=== PATIENT | male | born 1955 | race Caucasian/White ===

== ENCOUNTER 2017-12-03 09:45 | Inpatient (IN) | payer MEDICARE, BC, OTHER ==
[~2017-12-03] VITALS: Ht 182.9 cm; Wt 83.0 kg
[~2017-12-03 09:45] MED LIST: AMIO200T57 PO; CARV-50 PO; CLON-529 PO; FURO80TA87 PO; LOSA100T28 PO; METF500T PO; MINO10TA16 PO; POTA8TAB8 PO; RIVA20TA PO
[2017-12-03] MEDS ORDERED: nitroGLYCERIN 0.4mg SUBLingual tab SL PRN (10:05)
[2017-12-03 10:06] LABS: BASOPHILS % (AUTO) 0.1 % (0-1); EOSINOPHILS # (AUTO) 0.5 X10'3 (0-0.9); EOSINOPHILS % (AUTO) 2.9 % (0-6); HEMATOCRIT 49.5 % (42.0-52.0); HEMOGLOBIN 16.6 g/dl (14.0-17.9); LYMPHOCYTES # (AUTO) 1.2 X10'3 (1.1-4.8); MEAN CORPUSCULAR HEMOGLOBIN 28.6 PG (27.0-31.0); MEAN CORPUSCULAR HGB CONC 33.5 % (33.0-36.5); MEAN CORPUSCULAR VOLUME 85.4 FL (78-98); MEAN PLATELET VOLUME 8.1 FL (7.4-10.4); MONOCYTES % (AUTO) 5.3 % (2-12); NEUTROPHILS # (AUTO) 15.2 X10'3 (1.8-7.7); NEUTROPHILS % (AUTO) 84.7 % (42-75); PLATELET COUNT 231 X10'3 (140-440); RED CELL DISTRIBUTION WIDTH 16.7 % (11.5-14.5); WHITE BLOOD COUNT 17.9 X10'3 (4.5-11.0)
[2017-12-03 10:21] LABS: ALANINE AMINOTRANSFERASE 23 U/L (12-78); ALBUMIN 4.4 G/DL (3.4-5.0); ALBUMIN/GLOBULIN RATIO 0.9 (1.1-1.5); ALKALINE PHOSPHATASE 82 IU/L (46-116); ANION GAP 14 (8-16); ASPARTATE AMINO TRANSFERASE 14 U/L (10-37); BILIRUBIN,TOTAL 0.6 MG/DL (0.1-1.0); BLOOD UREA NITROGEN 26 MG/DL (7-18); CALCIUM 10.1 MG/DL (8.5-10.1); CHLORIDE 100 MMOL/L (99-107); CREATININE 1.63 MG/DL (0.60-1.10); GLUCOSE 356 MG/DL (70-104); POTASSIUM 4.2 MMOL/L (3.5-5.1); SODIUM 139 MMOL/L (135-145); TOTAL CARBON DIOXIDE 24.9 MMOL/L (24-32); TOTAL PROTEIN 9.1 G/DL (6.4-8.2); eGFR 43 ML/MIN
[2017-12-03 10:31] LABS: INR 1.1 INR; PARTIAL THROMBOPLASTIN TIME 27 SECONDS (22-32); PROTHROMBIN TIME 11.6 SECONDS (9.0-12.0)
[2017-12-03 10:43] LABS: LIPASE 148 U/L (73-393)
[2017-12-03] MEDS ORDERED: aspirin 81mg tab.chew PO ONE (11:10)
[2017-12-03] MEDS ORDERED: ondansetron/PF 4mg/2ml inj IV PRN (11:40)
[2017-12-03] MEDS ORDERED: mag hydrox/Alum hydrox/simeth 30ml oral suspension PO PRN (11:40)
[2017-12-03] MEDS ORDERED: magnesium 4gm in 100ml NS 100 ML IV PRN (11:40)
[2017-12-03] MEDS ORDERED: potassium Cl 20 mEq SR tablet PO PRN ×2 (11:40)
[2017-12-03] MEDS ORDERED: diphenhydrAMINE 25mg capsule PO PRN (11:40)
[2017-12-03] MEDS ORDERED: magnesium hydroxide 30ml (MOM) UD suspension PO PRN (11:40)
[2017-12-03] MEDS ORDERED: magnesium 2GM in 50ml NS 50 ML IV PRN (11:40)
[2017-12-03] MEDS ORDERED: HYDROcodone/acetaminophen 5mg/325mg tablet PO PRN (11:40)
[2017-12-03] MEDS ORDERED: potassium Cl 40MEQ/NS 500ml 500 ML IV PRN ×2 (11:40)
[2017-12-03] MEDS ORDERED: morphine 4 MG/ML inj SYRINge IV PRN (11:40)
[2017-12-03] MEDS ORDERED: acetaminophen 325mg tablet PO PRN (11:40)
[2017-12-03] MEDS ORDERED: magnesium Cl slow-release 64mg tablet PO PRN (11:40)
[2017-12-03] MEDS ORDERED: dextrose ORAL solution 15 GM/59 ML bottle PO PRN ×2 (12:15)
[2017-12-03] MEDS ORDERED: glucagon, human recombinant 1mg kit SUBCUT PRN (12:15)
[2017-12-03] MEDS ORDERED: dextrose 50%-water 50ml dispensing syringe IV PRN ×2 (12:15)
[2017-12-03] MEDS ORDERED: MESSAGE TO PHARMACY PO ONE (12:15)
[2017-12-03 13:00] LABS: HEMOGLOBIN A1C 8.2 % (4.5-6.2)
[2017-12-03 13:48] VITALS: BP 144/117
[2017-12-03] MEDS ORDERED: heparin 10,000 units/1 ML INJ IV ONE (14:15)
[2017-12-03] MEDS ORDERED: nitroGLYCERIN 1gm ointment UD TP ONE (14:25)
[2017-12-03 15:00] VITALS: BP 103/75
[2017-12-03 15:34] LABS: BASOPHILS % (AUTO) 0.1 % (0-1); EOSINOPHILS # (AUTO) 0.3 X10'3 (0-0.9); EOSINOPHILS % (AUTO) 1.8 % (0-6); HEMATOCRIT 46.2 % (42.0-52.0); HEMOGLOBIN 15.7 g/dl (14.0-17.9); LYMPHOCYTES # (AUTO) 1.1 X10'3 (1.1-4.8); MEAN CORPUSCULAR HEMOGLOBIN 28.3 PG (27.0-31.0); MEAN CORPUSCULAR HGB CONC 33.9 % (33.0-36.5); MEAN CORPUSCULAR VOLUME 83.4 FL (78-98); MEAN PLATELET VOLUME 8.3 FL (7.4-10.4); MONOCYTES # (AUTO) 0.9 X10'3 (0-0.9); MONOCYTES % (AUTO) 4.7 % (2-12); NEUTROPHILS # (AUTO) 16.6 X10'3 (1.8-7.7); NEUTROPHILS % (AUTO) 87.4 % (42-75); PLATELET COUNT 212 X10'3 (140-440); RED BLOOD COUNT 5.53 X10'6 (4.70-6.10); RED CELL DISTRIBUTION WIDTH 16.9 % (11.5-14.5)
[2017-12-03 15:47] LABS: INR 1.1 INR; PARTIAL THROMBOPLASTIN TIME 27 SECONDS (22-32); PROTHROMBIN TIME 11.5 SECONDS (9.0-12.0)
[2017-12-03 19:00] VITALS: BP 148/104
[2017-12-03] MEDS: tirofiban 5mg in NS 100mL 100 ML IV SCH ×2 (19:01→23:12)
[2017-12-03] MEDS: carVEDilol 12.5mg tablet PO SCH (19:29)
[2017-12-03] MEDS: docusate sod 100mg capsule PO SCH (19:30)
[2017-12-03] MEDS: furosemide 10 MG/1 ML 10ml inj IV SCH (19:31)
[2017-12-03] MEDS ORDERED: heparin, porcine 5000 units/ml vial SQ SCH (20:00)
[2017-12-03] MEDS ORDERED: metFORMIN 500mg tablet PO SCH (20:00)
[2017-12-03] MEDS: insulin glargine (Lantus) pen - multi-dose SQ SCH (21:00)
[2017-12-03] MEDS ORDERED: temazepam 15mg capsule PO PRN (21:00)
[2017-12-03] MEDS: heparin 10,000 units/1 ML INJ IV PRN (22:01)
[2017-12-03 23:00] VITALS: BP 161/84
[2017-12-04] VITALS (10 sets, daily range): BP systolic 109–161; BP diastolic 61–99
[2017-12-04] MEDS: heparin 10,000 units/1 ML INJ IV PRN (06:05)
[2017-12-04] MEDS ORDERED: heparin 1,000unit/ml 10ml vial 10 ML ONE (06:14)
[2017-12-04] MEDS ORDERED: LIDOcaine 1%/PF (10mg/ml) 5ml vial ONE ×2 (06:14)
[2017-12-04] MEDS ORDERED: iohexol 350 MG/1 ML 200ml bottle ONE (06:14)
[2017-12-04] MEDS ORDERED: verapamil 2.5 mg/ml inj IV ONE (06:16)
[2017-12-04] MEDS ORDERED: nitroGLYCERIN-Tridil 50MG/D5W 250 ML IV ONE (06:16)
[2017-12-04] MEDS ORDERED: fentaNYL/PF 50MCG/1 ML 2ML syringe ONE (06:30)
[2017-12-04] MEDS ORDERED: midazolam 2 mg/2 ml injection ONE (06:30)
[2017-12-04 06:55] LABS: ALANINE AMINOTRANSFERASE 36 U/L (12-78); ALBUMIN 3.7 G/DL (3.4-5.0); ALBUMIN/GLOBULIN RATIO 0.9 (1.1-1.5); ALKALINE PHOSPHATASE 69 IU/L (46-116); ANION GAP 11 (8-16); ASPARTATE AMINO TRANSFERASE 92 U/L (10-37); BILIRUBIN,TOTAL 0.5 MG/DL (0.1-1.0); BLOOD UREA NITROGEN 33 MG/DL (7-18); BUN/CREATININE RATIO 22.3 (5.4-32.0); CALCIUM 9.9 MG/DL (8.5-10.1); CHLORIDE 102 MMOL/L (99-107); CREATININE 1.48 MG/DL (0.60-1.10); GLUCOSE 243 MG/DL (70-104); MAGNESIUM 2.1 MG/DL (1.5-2.4); PHOSPHORUS 4.7 MG/DL (2.3-4.5); POTASSIUM 4.2 MMOL/L (3.5-5.1); SODIUM 138 MMOL/L (135-145); TOTAL CARBON DIOXIDE 25.1 MMOL/L (24-32); TOTAL PROTEIN 7.9 G/DL (6.4-8.2); eGFR 48 ML/MIN
[2017-12-04 07:01] LABS: BASOPHILS # (AUTO) 0.1 X10'3 (0-0.2); BASOPHILS % (AUTO) 0.6 % (0-1); EOSINOPHILS # (AUTO) 0.5 X10'3 (0-0.9); HEMATOCRIT 49.2 % (42.0-52.0); HEMOGLOBIN 16.3 g/dl (14.0-17.9); LYMPHOCYTES # (AUTO) 2.1 X10'3 (1.1-4.8); LYMPHOCYTES % (AUTO) 12.1 % (21-51); MEAN CORPUSCULAR HEMOGLOBIN 28.2 PG (27.0-31.0); MEAN CORPUSCULAR HGB CONC 33.1 % (33.0-36.5); MEAN CORPUSCULAR VOLUME 85.1 FL (78-98); MEAN PLATELET VOLUME 8.5 FL (7.4-10.4); MONOCYTES # (AUTO) 1.6 X10'3 (0-0.9); MONOCYTES % (AUTO) 9.6 % (2-12); NEUTROPHILS # (AUTO) 12.8 X10'3 (1.8-7.7); NEUTROPHILS % (AUTO) 74.7 % (42-75); PLATELET COUNT 203 X10'3 (140-440); RED BLOOD COUNT 5.78 X10'6 (4.70-6.10); RED CELL DISTRIBUTION WIDTH 17.2 % (11.5-14.5); WHITE BLOOD COUNT 17.1 X10'3 (4.5-11.0)
[2017-12-04] MEDS ORDERED: clopidogrel 300mg tablet ONE (07:03)
[2017-12-04 07:35] LABS: CHOL/HDL RATIO 2.8 (0.00-4.99); CHOLESTEROL 109 MG/DL (0-200); HDL CHOLESTEROL 39 MG/DL (35-60); LDL CHOLESTEROL 56 MG/DL (50-100); TRIGLYCERIDES 88 MG/DL (20-135)
[2017-12-04] MEDS: K and/or MAG REPLACEMENT MC SCH (08:00)
[2017-12-04] MEDS ORDERED: rivaroxaban 20mg tablet PO SCH (08:00)
[2017-12-04] MEDS ORDERED: proCHLORperazine 10 MG/2 ml inj IV PRN (08:20)
[2017-12-04] MEDS ORDERED: nitroGLYCERIN 0.4mg SUBLingual tab SL PRN (08:20)
[2017-12-04] MEDS ORDERED: HYDROcodone/acetaminophen 10/325mg tab PO PRN (08:20)
[2017-12-04] MEDS ORDERED: OXAZEpam 15mg capsule PO PRN (08:20)
[2017-12-04] MEDS ORDERED: normal saline 1000ml 1,000 ML IV SCH (08:20)
[2017-12-04] MEDS: aspirin 81mg tab.chew PO SCH (08:33)
[2017-12-04] MEDS: atorvastatin 20mg tablet PO SCH (08:33)
[2017-12-04] MEDS: cloNIDine 0.1 mg tablet PO SCH (08:34)
[2017-12-04] MEDS: docusate sod 100mg capsule PO SCH ×2 (08:34→20:59)
[2017-12-04] MEDS: furosemide 10 MG/1 ML 10ml inj IV SCH ×2 (08:35→20:59)
[2017-12-04] MEDS: carVEDilol 12.5mg tablet PO SCH ×2 (08:45→20:59)
[2017-12-04] MEDS: amiodarone 200mg tablet PO SCH (08:46)
[2017-12-04] MEDS ORDERED: NITR0.4T51 SL (11:47)
[2017-12-04] MEDS ORDERED: ASPI-1265 PO (11:47)
[2017-12-04] MEDS ORDERED: ATOR20TA66 PO (11:47)
[2017-12-04] MEDS ORDERED: CLOP75TA35 PO (11:47)
[2017-12-04] MEDS: insulin Lispro (HumaLOG) vial - multi-dose SQ SCH ×2 (13:01→18:45)
[2017-12-04] MEDS: insulin glargine (Lantus) pen - multi-dose SQ SCH (20:50)
[2017-12-05 02:00] VITALS: BP 109/75
[2017-12-05 05:37] LABS: BASOPHILS # (AUTO) 0.1 X10'3 (0-0.2); BASOPHILS % (AUTO) 0.5 % (0-1); EOSINOPHILS # (AUTO) 0.6 X10'3 (0-0.9); EOSINOPHILS % (AUTO) 3.6 % (0-6); HEMATOCRIT 50.4 % (42.0-52.0); HEMOGLOBIN 16.9 g/dl (14.0-17.9); LYMPHOCYTES % (AUTO) 6.3 % (21-51); MEAN CORPUSCULAR HEMOGLOBIN 28.4 PG (27.0-31.0); MEAN CORPUSCULAR HGB CONC 33.5 % (33.0-36.5); MEAN CORPUSCULAR VOLUME 84.8 FL (78-98); MEAN PLATELET VOLUME 8.7 FL (7.4-10.4); MONOCYTES # (AUTO) 1.7 X10'3 (0-0.9); MONOCYTES % (AUTO) 10.7 % (2-12); NEUTROPHILS # (AUTO) 12.6 X10'3 (1.8-7.7); NEUTROPHILS % (AUTO) 78.9 % (42-75); PLATELET COUNT 195 X10'3 (140-440); RED BLOOD COUNT 5.94 X10'6 (4.70-6.10); RED CELL DISTRIBUTION WIDTH 15.9 % (11.5-14.5); WHITE BLOOD COUNT 15.9 X10'3 (4.5-11.0)
[2017-12-05 05:47] LABS: ALANINE AMINOTRANSFERASE 29 U/L (12-78); ALBUMIN 3.8 G/DL (3.4-5.0); ALBUMIN/GLOBULIN RATIO 0.8 (1.1-1.5); ALKALINE PHOSPHATASE 77 IU/L (46-116); ANION GAP 10 (8-16); ASPARTATE AMINO TRANSFERASE 40 U/L (10-37); BILIRUBIN,TOTAL 0.8 MG/DL (0.1-1.0); BLOOD UREA NITROGEN 45 MG/DL (7-18); BUN/CREATININE RATIO 27.1 (5.4-32.0); CALCIUM 9.8 MG/DL (8.5-10.1); CHLORIDE 99 MMOL/L (99-107); CREATININE 1.66 MG/DL (0.60-1.10); GLUCOSE 266 MG/DL (70-104); MAGNESIUM 1.9 MG/DL (1.5-2.4); PHOSPHORUS 5.1 MG/DL (2.3-4.5); POTASSIUM 4.4 MMOL/L (3.5-5.1); SODIUM 137 MMOL/L (135-145); TOTAL CARBON DIOXIDE 27.8 MMOL/L (24-32); TOTAL PROTEIN 8.3 G/DL (6.4-8.2); eGFR 42 ML/MIN
[2017-12-05] MEDS ORDERED: normal saline 1000ml 1,000 ML IV ONE (06:55)
[2017-12-05] MEDS ORDERED: normal saline 1000ml 1,000 ML IV SCH (07:00)
[2017-12-05 07:16] VITALS: BP 149/94
[2017-12-05] MEDS: amiodarone 200mg tablet PO SCH (07:41)
[2017-12-05] MEDS: cloNIDine 0.1 mg tablet PO SCH (07:41)
[2017-12-05] MEDS: carVEDilol 12.5mg tablet PO SCH (07:42)
[2017-12-05] MEDS: atorvastatin 20mg tablet PO SCH (07:42)
[2017-12-05] MEDS: aspirin 81mg tab.chew PO SCH (07:42)
[2017-12-05] MEDS: docusate sod 100mg capsule PO SCH (07:42)
[2017-12-05] MEDS: insulin Lispro (HumaLOG) vial - multi-dose SQ SCH (07:48)
[2017-12-05] MEDS ORDERED: furosemide 20MG tablet PO SCH (08:00)
[2017-12-05] MEDS ORDERED: clopidogrel 75mg tablet PO SCH (08:00)
[2017-12-05] MEDS: K and/or MAG REPLACEMENT MC SCH (08:26)
== END 2017-12-05 10:40 | disposition home or self-care (01) | DRG 248 ==
LOC: ER 09:46 → PCU 3S 11:39 → EDBEDREQTM 12:48 → CMPBEDREQ 20:00
PROVIDERS: ADMIT Internal Medicine; ATTEND Internal Medicine
PROC: 4A023N7 Measurement of Cardiac Sampling and Pressure, Left Heart, Percutaneous Approach (ICD-10-PCS; principal; 2017-12-04)
PROC: 02703DZ Dilation of Coronary Artery, One Artery with Intraluminal Device, Percutaneous Approach (ICD-10-PCS; 2017-12-04)
PROC: B2111ZZ Fluoroscopy of Multiple Coronary Arteries using Low Osmolar Contrast (ICD-10-PCS; 2017-12-04)
PROC: B2151ZZ Fluoroscopy of Left Heart using Low Osmolar Contrast (ICD-10-PCS; 2017-12-04)
DX: I21.4 Non-ST elevation (NSTEMI) myocardial infarction (principal); I50.33 Acute on chronic diastolic (congestive) heart failure; I48.92 Unspecified atrial flutter; I11.0 Hypertensive heart disease with heart failure; I45.10 Unspecified right bundle-branch block; I48.0 Paroxysmal atrial fibrillation; E78.5 Hyperlipidemia, unspecified; E11.9 Type 2 diabetes mellitus without complications; I25.10 Atherosclerotic heart disease of native coronary artery without angina pectoris; N28.9 Disorder of kidney and ureter, unspecified; M10.9 Gout, unspecified; J44.9 Chronic obstructive pulmonary disease, unspecified; Z72.0 Tobacco use; Z95.5 Presence of coronary angioplasty implant and graft; I25.2 Old myocardial infarction; Z79.82 Long term (current) use of aspirin; Z79.899 Other long term (current) drug therapy; Z79.01 Long term (current) use of anticoagulants; Z88.1 Allergy status to other antibiotic agents; Z85.038 Personal history of other malignant neoplasm of large intestine; Z82.41 Family history of sudden cardiac death; Z82.49 Family history of ischemic heart disease and other diseases of the circulatory system; Z83.3 Family history of diabetes mellitus; Z83.42 Family history of familial hypercholesterolemia
CPT/HCPCS: 93306; 93458; 99285; C9600; 36415; 71045; 80053; 80061; 82948; 83036; 83690; 83735; 83880; 84100; 84484; 85025; 85610; 85730; 87070; 93005; 99152; 99153; A4620; A6257; C1725; C1769; C1876; J1644; J1815; J1940; J2001; J2250; J3010; J3246; J3490; J7030; Q9967

== ENCOUNTER 2018-08-11 12:44 | Inpatient (IN) | payer MEDICARE, BC, OTHER ==
[~2018-08-11] VITALS: Ht 180.3 cm; Wt 93.8 kg
[~2018-08-11 12:44] MED LIST changes: +AMIO200T40 PO; -AMIO200T57 PO; +ASPI-1265 PO; +ATOR20TA66 PO; +CLOP75TA35 PO; +LOSA100T15 PO; -LOSA100T28 PO; +NITR0.4T51 SL
[2018-08-11 13:12] LABS: BASOPHILS # (AUTO) 0.1 X10'3 (0-0.2); BASOPHILS % (AUTO) 0.6 % (0-1); EOSINOPHILS # (AUTO) 0.6 X10'3 (0-0.9); HEMATOCRIT 37.2 % (42.0-52.0); HEMOGLOBIN 12.4 g/dl (14.0-17.9); LYMPHOCYTES # (AUTO) 1.2 X10'3 (1.1-4.8); LYMPHOCYTES % (AUTO) 10.9 % (21-51); MEAN CORPUSCULAR HEMOGLOBIN 29.9 PG (27.0-31.0); MEAN CORPUSCULAR HGB CONC 33.2 % (33.0-36.5); MEAN CORPUSCULAR VOLUME 90.1 FL (78-98); MEAN PLATELET VOLUME 7.4 FL (7.4-10.4); NEUTROPHILS # (AUTO) 8.5 X10'3 (1.8-7.7); NEUTROPHILS % (AUTO) 74.5 % (42-75); PLATELET COUNT 221 X10'3 (140-440); RED BLOOD COUNT 4.13 X10'6 (4.70-6.10); RED CELL DISTRIBUTION WIDTH 13.5 % (11.5-14.5); WHITE BLOOD COUNT 11.4 X10'3 (4.5-11.0)
[2018-08-11 13:28] LABS: ALANINE AMINOTRANSFERASE 13 U/L (12-78); ALBUMIN/GLOBULIN RATIO 1.1 (1.1-1.5); ALKALINE PHOSPHATASE 69 IU/L (46-116); ANION GAP 13 (8-16); ASPARTATE AMINO TRANSFERASE 9 U/L (10-37); BILIRUBIN,TOTAL 0.6 MG/DL (0.1-1.0); BLOOD UREA NITROGEN 38 MG/DL (7-18); BUN/CREATININE RATIO 18.5 (5.4-32.0); CALCIUM 9.1 MG/DL (8.5-10.1); CHLORIDE 99 MMOL/L (99-107); CREATININE 2.05 MG/DL (0.60-1.10); GLUCOSE 195 MG/DL (70-104); POTASSIUM 4.4 MMOL/L (3.5-5.1); SODIUM 136 MMOL/L (135-145); TOTAL CARBON DIOXIDE 24.4 MMOL/L (24-32); TOTAL PROTEIN 7.8 G/DL (6.4-8.2); eGFR 33 ML/MIN
[2018-08-11 13:31] LABS: INR 1.1 INR; PARTIAL THROMBOPLASTIN TIME 28 SECONDS (22-32); PROTHROMBIN TIME 11.3 SECONDS (9.0-12.0)
[2018-08-11] MEDS ORDERED: dextrose ORAL solution 15 GM/59 ML bottle PO PRN ×2 (14:35)
[2018-08-11] MEDS ORDERED: morphine 2 MG/ML inj. syringe IV PRN ×2 (14:35)
[2018-08-11] MEDS ORDERED: ipratropium/albuterol 3ml nebule NEB PRN (14:35)
[2018-08-11] MEDS ORDERED: MESSAGE TO PHARMACY PO ONE (14:35)
[2018-08-11] MEDS ORDERED: acetaminophen 325mg tablet PO PRN (14:35)
[2018-08-11] MEDS ORDERED: docusate sod 100mg capsule PO PRN (14:35)
[2018-08-11] MEDS ORDERED: dextrose 50%-water 50ml dispensing syringe IV PRN ×2 (14:35)
[2018-08-11] MEDS ORDERED: magnesium 4gm in 100ml NS 100 ML IV PRN (14:35)
[2018-08-11] MEDS ORDERED: ondansetron/PF 4mg/2ml inj IV PRN (14:35)
[2018-08-11] MEDS ORDERED: mag hydrox/Alum hydrox/simeth 30ml oral suspension PO PRN (14:35)
[2018-08-11] MEDS ORDERED: potassium Cl 20 mEq SR tablet PO PRN ×2 (14:35)
[2018-08-11] MEDS ORDERED: potassium Cl 40MEQ/NS 500ml 500 ML IV PRN ×2 (14:35)
[2018-08-11] MEDS ORDERED: glucagon, human recombinant 1mg kit SUBCUT PRN (14:35)
[2018-08-11] MEDS ORDERED: insulin Lispro (HumaLOG) vial - multi-dose SQ SCH (14:35)
[2018-08-11] MEDS: clopidogrel 75mg tablet PO SCH (15:25)
[2018-08-11] MEDS ORDERED: SPIR50TA5 PO (16:04)
[2018-08-11] MEDS ORDERED: GLYB5TAB7 PO (16:04)
[2018-08-11] MEDS ORDERED: DILT120C51 PO (16:04)
[2018-08-11] MEDS ORDERED: ACET-2119 PO (16:04)
[2018-08-11] MEDS ORDERED: FURO80TA3 PO (16:04)
[2018-08-11] MEDS ORDERED: insulin glargine (Lantus) pen - multi-dose SQ SCH (21:00)
[2018-08-11 22:00] VITALS: BP 125/65
[2018-08-12 01:41] LABS: ALANINE AMINOTRANSFERASE 10 U/L (12-78); ALBUMIN 3.3 G/DL (3.4-5.0); ALKALINE PHOSPHATASE 57 IU/L (46-116); ANION GAP 10 (8-16); ASPARTATE AMINO TRANSFERASE 8 U/L (10-37); BILIRUBIN,TOTAL 0.4 MG/DL (0.1-1.0); BLOOD UREA NITROGEN 48 MG/DL (7-18); CALCIUM 8.9 MG/DL (8.5-10.1); CHLORIDE 103 MMOL/L (99-107); CREATININE 2.18 MG/DL (0.60-1.10); GLUCOSE 114 MG/DL (70-104); POTASSIUM 4.3 MMOL/L (3.5-5.1); SODIUM 138 MMOL/L (135-145); TOTAL CARBON DIOXIDE 24.6 MMOL/L (24-32); TOTAL PROTEIN 6.6 G/DL (6.4-8.2); eGFR 31 ML/MIN
[2018-08-12 01:45] LABS: CHOL/HDL RATIO 2.3 (0.00-4.99); CHOLESTEROL 80 MG/DL (0-200); HDL CHOLESTEROL 35 MG/DL (35-60); LDL CHOLESTEROL 37 MG/DL (50-100); MAGNESIUM 2.1 MG/DL (1.5-2.4); TRIGLYCERIDES 52 MG/DL (20-135)
[2018-08-12 01:51] LABS: BASOPHILS # (AUTO) 0.1 X10'3 (0-0.2); BASOPHILS % (AUTO) 0.6 % (0-1); EOSINOPHILS # (AUTO) 0.6 X10'3 (0-0.9); EOSINOPHILS % (AUTO) 6.6 % (0-6); HEMATOCRIT 32.3 % (42.0-52.0); LYMPHOCYTES # (AUTO) 1.5 X10'3 (1.1-4.8); LYMPHOCYTES % (AUTO) 17.2 % (21-51); MEAN CORPUSCULAR HEMOGLOBIN 30.5 PG (27.0-31.0); MEAN CORPUSCULAR HGB CONC 34.1 % (33.0-36.5); MEAN CORPUSCULAR VOLUME 89.5 FL (78-98); MEAN PLATELET VOLUME 7.9 FL (7.4-10.4); MONOCYTES % (AUTO) 11.2 % (2-12); NEUTROPHILS # (AUTO) 5.5 X10'3 (1.8-7.7); NEUTROPHILS % (AUTO) 64.4 % (42-75); PLATELET COUNT 185 X10'3 (140-440); RED BLOOD COUNT 3.61 X10'6 (4.70-6.10); RED CELL DISTRIBUTION WIDTH 13.9 % (11.5-14.5); WHITE BLOOD COUNT 8.5 X10'3 (4.5-11.0)
[2018-08-12 02:00] VITALS: BP 122/64
[2018-08-12 07:01] VITALS: BP 131/80
[2018-08-12] MEDS ORDERED: rivaroxaban 20mg tablet PO SCH (08:00)
[2018-08-12] MEDS ORDERED: K and/or MAG REPLACEMENT MC SCH (08:00)
[2018-08-12] MEDS: clopidogrel 75mg tablet PO SCH (08:11)
[2018-08-12 11:00] VITALS: BP 130/68
== END 2018-08-12 12:55 | disposition home or self-care (01) | DRG 683 ==
LOC: ER 12:44 → ED HOLD 14:34 → PCU 3S 19:38
PROVIDERS: ADMIT Family Medicine; ATTEND Family Medicine
DX: N17.9 Acute kidney failure, unspecified (principal); I13.0 Hypertensive heart and chronic kidney disease with heart failure and stage 1 through stage 4 chronic kidney disease, or unspecified chronic kidney disease; I50.30 Unspecified diastolic (congestive) heart failure; I25.10 Atherosclerotic heart disease of native coronary artery without angina pectoris; M10.9 Gout, unspecified; E11.22 Type 2 diabetes mellitus with diabetic chronic kidney disease; J44.9 Chronic obstructive pulmonary disease, unspecified; N18.9 Chronic kidney disease, unspecified; R07.9 Chest pain, unspecified; I48.2 Chronic atrial fibrillation; I25.2 Old myocardial infarction; Z95.5 Presence of coronary angioplasty implant and graft; Z88.1 Allergy status to other antibiotic agents; Z79.899 Other long term (current) drug therapy; Z79.4 Long term (current) use of insulin; Z79.82 Long term (current) use of aspirin; Z79.01 Long term (current) use of anticoagulants; Z86.73 Personal history of transient ischemic attack (TIA), and cerebral infarction without residual deficits; Z87.891 Personal history of nicotine dependence; Z87.01 Personal history of pneumonia (recurrent); Z82.41 Family history of sudden cardiac death; Z82.49 Family history of ischemic heart disease and other diseases of the circulatory system
CPT/HCPCS: 36415; 71045; 80053; 80061; 82948; 83036; 83735; 84484; 85025; 85610; 85730; 87070; 93005; 93306; 94640; 94760; 99285; G0378; J1815

== ENCOUNTER 2018-10-17 20:22 | Emergency (ER) | payer MEDICARE, BC, OTHER ==
[~2018-10-17] VITALS: Ht 180.3 cm; Wt 90.0 kg
[~2018-10-17 20:22] MED LIST changes: +ACET-2119 PO; -AMIO200T40 PO; -CARV-50 PO; -CLON-529 PO; +DILT120C51 PO; -FURO80TA87 PO; +GLYB5TAB7 PO; -LOSA100T15 PO; +LOSA100T57 PO; -METF500T PO; -POTA8TAB8 PO; -RIVA20TA PO; +SPIR50TA5 PO
[2018-10-18 00:52] LABS: ALANINE AMINOTRANSFERASE 14 U/L (12-78); ALBUMIN/GLOBULIN RATIO 1.1 (1.1-1.5); ALKALINE PHOSPHATASE 73 IU/L (46-116); ANION GAP 14 (8-16); ASPARTATE AMINO TRANSFERASE 13 U/L (10-37); BASOPHILS # (AUTO) 0.1 X10'3 (0-0.2); BASOPHILS % (AUTO) 0.6 % (0-1); BILIRUBIN,TOTAL 0.8 MG/DL (0.1-1.0); BLOOD UREA NITROGEN 50 MG/DL (7-18); CALCIUM 9.1 MG/DL (8.5-10.1); CHLORIDE 101 MMOL/L (99-107); CREATININE 2.78 MG/DL (0.60-1.10); EOSINOPHILS # (AUTO) 0.5 X10'3 (0-0.9); EOSINOPHILS % (AUTO) 4.1 % (0-6); GLUCOSE 138 MG/DL (70-104); HEMATOCRIT 36.7 % (42.0-52.0); HEMOGLOBIN 11.9 g/dl (14.0-17.9); LYMPHOCYTES # (AUTO) 1.4 X10'3 (1.1-4.8); LYMPHOCYTES % (AUTO) 12.5 % (21-51); MEAN CORPUSCULAR HEMOGLOBIN 28.5 PG (27.0-31.0); MEAN CORPUSCULAR HGB CONC 32.4 g/dL (33.0-36.5); MEAN CORPUSCULAR VOLUME 88.1 FL (78-98); MEAN PLATELET VOLUME 8.3 FL (7.4-10.4); MONOCYTES % (AUTO) 9.2 % (2-12); NEUTROPHILS % (AUTO) 73.6 % (42-75); PLATELET COUNT 202 X10'3 (140-440); POTASSIUM 3.8 MMOL/L (3.5-5.1); RED BLOOD COUNT 4.16 X10'6 (4.70-6.10); RED CELL DISTRIBUTION WIDTH 13.5 % (11.5-14.5); SODIUM 137 MMOL/L (135-145); TOTAL CARBON DIOXIDE 21.7 MMOL/L (24-32); TOTAL PROTEIN 7.8 G/DL (6.4-8.2); eGFR 23 ML/MIN
[2018-10-18 01:33] VITALS: BP 132/78
== END 2018-10-18 01:35 | disposition home or self-care (01) ==
LOC: ER 20:23
DX: N18.3 Chronic kidney disease, stage 3 (moderate) (principal); E11.22 Type 2 diabetes mellitus with diabetic chronic kidney disease; I48.91 Unspecified atrial fibrillation; I25.10 Atherosclerotic heart disease of native coronary artery without angina pectoris; I50.9 Heart failure, unspecified; I25.2 Old myocardial infarction; J44.9 Chronic obstructive pulmonary disease, unspecified; M10.9 Gout, unspecified; Z98.61 Coronary angioplasty status; Z88.1 Allergy status to other antibiotic agents; Z79.82 Long term (current) use of aspirin; Z79.899 Other long term (current) drug therapy
CPT/HCPCS: 36415; 80053; 85025; 99284

== ENCOUNTER 2020-01-04 11:54 | Inpatient (IN) | payer MEDICARE, BC ==
[~2020-01-04] VITALS: Ht 182.9 cm; Wt 92.7 kg
[~2020-01-04 11:54] MED LIST changes: +AMIO200T61 PO; +APIX5TAB3 PO; +ASPI-1264 PO; -ASPI-1265 PO; -ATOR20TA66 PO; +ATOR40TA PO; +CHOL2000 PO; -CLOP75TA35 PO; -DILT120C51 PO; +DILT240C94 PO; +FURO80TA87 PO; +HYDR-4069 PO; +INDO-12 PO; +LINA5TAB4 PO; -NITR0.4T51 SL; +SPIR25TA5 PO; -SPIR50TA5 PO
[2020-01-04 12:47] LABS: PARTIAL THROMBOPLASTIN TIME 28 SECONDS (22-32)
[2020-01-04 12:53] LABS: ALANINE AMINOTRANSFERASE 40 U/L (12-78); ALBUMIN 3.1 G/DL (3.4-5.0); ALBUMIN/GLOBULIN RATIO 0.8 (1.1-1.5); ALKALINE PHOSPHATASE 101 IU/L (46-116); ANION GAP 10 (8-16); ASPARTATE AMINO TRANSFERASE 22 U/L (10-37); BILIRUBIN,TOTAL 0.6 MG/DL (0.1-1.0); BLOOD UREA NITROGEN 18 MG/DL (7-18); BUN/CREATININE RATIO 13.2 (5.4-32.0); CALCIUM 8.6 MG/DL (8.5-10.1); CHLORIDE 106 MMOL/L (99-107); CREATININE 1.36 MG/DL (0.60-1.10); GLUCOSE 268 MG/DL (70-104); SODIUM 141 MMOL/L (135-145); TOTAL PROTEIN 7.1 G/DL (6.4-8.2); eGFR 52 ML/MIN
[2020-01-04 13:37] LABS: HEMATOCRIT 38.6 % (42.0-52.0); HEMOGLOBIN 12.6 g/dl (14.0-17.9); MEAN CORPUSCULAR HEMOGLOBIN 25.7 PG (27.0-31.0); MEAN CORPUSCULAR HGB CONC 32.6 g/dL (33.0-36.5); MEAN CORPUSCULAR VOLUME 78.8 FL (78-98); MEAN PLATELET VOLUME 7.8 FL (7.4-10.4); PLATELET COUNT 225 X10'3 (140-440); RED BLOOD COUNT 4.91 X10'6 (4.70-6.10); RED CELL DISTRIBUTION WIDTH 16.2 % (11.5-14.5); WHITE BLOOD COUNT 11.4 X10'3 (4.5-11.0)
[2020-01-04 13:56] LABS: PLATELET ESTIMATE NORMAL; TOTAL CELLS COUNTED 100
[2020-01-04 13:57] LABS: ANISOCYTOSIS 1+; GIANT PLATELET FEW; MICROCYTOSIS 1+
[2020-01-04] MEDS ORDERED: aspirin 325mg tablet PO ONE (14:05)
[2020-01-04] MEDS ORDERED: potassium CL 10mEq/100ml bag 100 ML IV PRN ×2 (14:15)
[2020-01-04] MEDS ORDERED: potassium Cl 20 mEq SR tablet PO PRN ×2 (14:15)
[2020-01-04] MEDS ORDERED: morphine 2 MG/ML inj. syringe IV PRN (14:15)
[2020-01-04] MEDS ORDERED: magnesium Cl slow-release 64mg tablet PO PRN (14:15)
[2020-01-04] MEDS ORDERED: magnesium 4gm in 100ml NS 100 ML IV PRN (14:15)
[2020-01-04] MEDS ORDERED: magnesium 2GM in 50ml NS 50 ML IV PRN (14:15)
[2020-01-04] MEDS ORDERED: ondansetron/PF 4mg/2ml inj IV PRN (14:15)
--- NOTE | 2020-01-04 14:40 | NUR ---
provided pt food and ice water.
--- NOTE | 2020-01-04 15:09 | NUR ---
Danyelle billings in [facility] - 01/04/20 at [address] PT [address]
[2020-01-04] MEDS ORDERED: NITR0.4T48 SL (15:11)
[2020-01-04] MEDS ORDERED: ASPI-1265 PO (15:11)
[2020-01-04] MEDS ORDERED: ERTU5TAB PO (15:11)
--- NOTE | 2020-01-04 15:57 | NUR ---
PT SLEEPING, EVEN RISE AND FALL OF CHEST, VSS, CALL LIGHT IN REACH.
--- NOTE | 2020-01-04 16:41 | NUR ---
OFFICE SUPPORT ASSISTANT AT BEDSIDE.
[2020-01-04 19:00] VITALS: BP 178/129
[2020-01-04] MEDS ORDERED: nitroGLYCERIN 0.4mg SUBLingual tab SL SCH (19:40)
[2020-01-04] MEDS ORDERED: acetaminophen 325mg tablet PO PRN (19:40)
[2020-01-04] MEDS: K and/or MAG REPLACEMENT MC SCH (20:00)
[2020-01-04] MEDS ORDERED: furosemide 10 MG/1 ML 10ml inj IV SCH (20:00)
[2020-01-04] MEDS: docusate sod 100mg capsule PO SCH (20:30)
[2020-01-04] MEDS: hydrALAZINE 25 MG tablet PO SCH (20:30)
[2020-01-04] MEDS: apixaban 5mg tablet PO SCH (20:30)
[2020-01-04 22:00] VITALS: BP 139/86
--- NOTE | 2020-01-04 22:44 | NUR ---
Patient in room ORTHO 4022. I have received report from KENNEDY Mo and had the opportunity to ask questions and assume patient care. Addendum: 01/04/20 at 2245 by Dot Aguilar RN Amended: Links added.
--- NOTE | 2020-01-04 22:45 | NUR ---
Patient in room ORTHO 4022. I have received report from KIMBERLY Mo RN and had the opportunity to ask questions and assume patient care. Addendum: 01/04/20 at 2246 by Dot Aguilar RN Amended: Links added.
[2020-01-04] MEDS ORDERED: indomethacin 25mg capsule PO ONE (23:55)
[2020-01-05 01:13] LABS: BASOPHILS # (AUTO) 0.1 X10'3 (0-0.2); BASOPHILS % (AUTO) 1.4 % (0-1); EOSINOPHILS # (AUTO) 0.4 X10'3 (0-0.9); EOSINOPHILS % (AUTO) 3.5 % (0-6); HEMATOCRIT 39.6 % (42.0-52.0); HEMOGLOBIN 12.5 g/dl (14.0-17.9); LYMPHOCYTES # (AUTO) 1.3 X10'3 (1.1-4.8); LYMPHOCYTES % (AUTO) 12.4 % (21-51); MEAN CORPUSCULAR HEMOGLOBIN 25.3 PG (27.0-31.0); MEAN CORPUSCULAR HGB CONC 31.5 g/dL (33.0-36.5); MEAN CORPUSCULAR VOLUME 80.3 FL (78-98); MONOCYTES # (AUTO) 1.3 X10'3 (0-0.9); NEUTROPHILS # (AUTO) 7.5 X10'3 (1.8-7.7); NEUTROPHILS % (AUTO) 70.7 % (42-75); PLATELET COUNT 212 X10'3 (140-440); RED BLOOD COUNT 4.93 X10'6 (4.70-6.10); RED CELL DISTRIBUTION WIDTH 17.1 % (11.5-14.5); WHITE BLOOD COUNT 10.6 X10'3 (4.5-11.0)
[2020-01-05 01:28] LABS: ALBUMIN 3.1 G/DL (3.4-5.0); ANION GAP 10 (8-16); BLOOD UREA NITROGEN 24 MG/DL (7-18); BUN/CREATININE RATIO 15.6 (5.4-32.0); CHLORIDE 106 MMOL/L (99-107); CREATININE 1.54 MG/DL (0.60-1.10); GLUCOSE 302 MG/DL (70-104); MAGNESIUM 2.1 MG/DL (1.5-2.4); POTASSIUM 3.7 MMOL/L (3.5-5.1); SODIUM 142 MMOL/L (135-145); TOTAL CARBON DIOXIDE 26.3 MMOL/L (24-32); eGFR 45 ML/MIN
[2020-01-05 02:19] VITALS: BP 182/118
[2020-01-05 06:00] VITALS: BP 175/111
--- NOTE | 2020-01-05 06:24 | NUR ---
Problems reprioritized. Patient report given, questions answered & plan of care reviewed with KENNEDY Merchant. Addendum: 01/05/20 at 0624 by Dot Aguilar RN Amended: Links added.
[2020-01-05 07:11] VITALS: BP 168/109
--- NOTE | 2020-01-05 07:33 | NUR ---
Patient in room ORTHO 4022. I have received report from Dot BENAVIDES and had the opportunity to ask questions and assume patient care.
[2020-01-05] MEDS ORDERED: spironolactone 25 MG tablet PO SCH (08:00)
[2020-01-05] MEDS: K and/or MAG REPLACEMENT MC SCH ×2 (08:00→20:00)
[2020-01-05] MEDS ORDERED: carvedilol 6.25mg tablet PO ONE (09:02)
[2020-01-05] MEDS ORDERED: dextrose ORAL solution 15 GM/59 ML bottle PO PRN ×2 (09:05)
[2020-01-05] MEDS ORDERED: MESSAGE TO PHARMACY PO ONE (09:05)
[2020-01-05] MEDS ORDERED: glucagon, human recombinant 1mg kit SUBCUT PRN (09:05)
[2020-01-05] MEDS ORDERED: dextrose 50%-water 50ml dispensing syringe IV PRN ×2 (09:05)
[2020-01-05] MEDS ORDERED: furosemide 10 MG/1 ML 10ml inj IV ONE (09:16)
[2020-01-05] MEDS: indomethacin 25mg capsule PO SCH ×3 (09:42→21:46)
[2020-01-05] MEDS: aspirin 81mg tab.chew PO SCH (09:42)
[2020-01-05] MEDS: docusate sod 100mg capsule PO SCH ×2 (09:42→19:55)
[2020-01-05] MEDS: apixaban 5mg tablet PO SCH ×2 (09:42→19:55)
[2020-01-05] MEDS: atorvastatin 20mg tablet PO SCH (09:43)
[2020-01-05] MEDS: hydrALAZINE 25 MG tablet PO SCH ×3 (09:43→21:46)
[2020-01-05 09:49] LABS: HEMOGLOBIN A1C 12.3 % (4.5-6.2)
[2020-01-05] MEDS: insulin Lispro (HumaLOG) vial - multi-dose SQ SCH ×3 (10:53→18:44)
[2020-01-05 14:22] VITALS: BP 158/94
--- NOTE | 2020-01-05 15:29 | NUR ---
Patient complaining of cramping in calf muscles. Informed Dr. Emiliano MD ordered one time dose of Kdur.
[2020-01-05] MEDS ORDERED: potassium Cl 20 mEq SR tablet PO ONE (15:30)
--- NOTE | 2020-01-05 15:30 | NUR ---
Dr. Cummings informed that telegraph lineman reported pt going back and forth between sinus rhythm and aflutter this morning, now in sinus rhythm. to input orders.
[2020-01-05] MEDS: lisinopril 5mg tablet PO SCH (16:15)
[2020-01-05 18:00] VITALS: BP 167/108
--- NOTE | 2020-01-05 18:15 | NUR ---
Problems reprioritized. Patient report given, questions answered & plan of care reviewed with Johana BENAVIDES and Meenakshi BENAVIDES.
[2020-01-05] MEDS: carVEDilol 12.5mg tablet PO SCH (19:55)
[2020-01-05] MEDS: furosemide 10 MG/1 ML 10ml inj IV SCH (19:58)
[2020-01-05] MEDS ORDERED: carvedilol 6.25mg tablet PO SCH (20:00)
[2020-01-05] MEDS ORDERED: insulin glargine (Lantus) pen - multi-dose SQ SCH (21:00)
[2020-01-06 06:00] VITALS: BP 173/104
[2020-01-06 06:44] LABS: BASOPHILS # (AUTO) 0.1 X10'3 (0-0.2); BASOPHILS % (AUTO) 1.2 % (0-1); EOSINOPHILS # (AUTO) 0.4 X10'3 (0-0.9); EOSINOPHILS % (AUTO) 3.5 % (0-6); HEMATOCRIT 38.5 % (42.0-52.0); HEMOGLOBIN 12.1 g/dl (14.0-17.9); LYMPHOCYTES # (AUTO) 1.6 X10'3 (1.1-4.8); LYMPHOCYTES % (AUTO) 15.6 % (21-51); MEAN CORPUSCULAR HEMOGLOBIN 25.1 PG (27.0-31.0); MEAN CORPUSCULAR HGB CONC 31.5 g/dL (33.0-36.5); MEAN CORPUSCULAR VOLUME 79.7 FL (78-98); MEAN PLATELET VOLUME 8.1 FL (7.4-10.4); MONOCYTES # (AUTO) 1.2 X10'3 (0-0.9); MONOCYTES % (AUTO) 10.9 % (2-12); NEUTROPHILS # (AUTO) 7.3 X10'3 (1.8-7.7); NEUTROPHILS % (AUTO) 68.8 % (42-75); PLATELET COUNT 158 X10'3 (140-440); RED BLOOD COUNT 4.83 X10'6 (4.70-6.10); RED CELL DISTRIBUTION WIDTH 16.8 % (11.5-14.5); WHITE BLOOD COUNT 10.6 X10'3 (4.5-11.0)
[2020-01-06 07:06] LABS: ALBUMIN 2.5 G/DL (3.4-5.0); ANION GAP 13 (8-16); BLOOD UREA NITROGEN 36 MG/DL (7-18); BUN/CREATININE RATIO 24.2 (5.4-32.0); CALCIUM 8.7 MG/DL (8.5-10.1); CHLORIDE 106 MMOL/L (99-107); CREATININE 1.49 MG/DL (0.60-1.10); GLUCOSE 150 MG/DL (70-104); MAGNESIUM 2.2 MG/DL (1.5-2.4); POTASSIUM 4.2 MMOL/L (3.5-5.1); SODIUM 137 MMOL/L (135-145); TOTAL CARBON DIOXIDE 18.1 MMOL/L (24-32); eGFR 47 ML/MIN
[2020-01-06] MEDS: indomethacin 25mg capsule PO SCH (07:36)
[2020-01-06] MEDS: docusate sod 100mg capsule PO SCH (07:36)
[2020-01-06] MEDS: apixaban 5mg tablet PO SCH (07:36)
[2020-01-06] MEDS: carVEDilol 12.5mg tablet PO SCH (07:37)
[2020-01-06] MEDS: atorvastatin 20mg tablet PO SCH (07:37)
[2020-01-06] MEDS: lisinopril 5mg tablet PO SCH (07:37)
[2020-01-06] MEDS: aspirin 81mg tab.chew PO SCH (07:37)
[2020-01-06] MEDS: hydrALAZINE 25 MG tablet PO SCH (07:37)
[2020-01-06] MEDS: furosemide 10 MG/1 ML 10ml inj IV SCH (07:39)
[2020-01-06] MEDS: K and/or MAG REPLACEMENT MC SCH (08:00)
[2020-01-06] MEDS: insulin Lispro (HumaLOG) vial - multi-dose SQ SCH (08:42)
[2020-01-06 10:00] VITALS: BP 151/95
[2020-01-06] MEDS ORDERED: LISI-642 PO (11:13)
[2020-01-06] MEDS ORDERED: CARV-50 PO (11:13)
--- NOTE | 2020-01-06 11:43 | NUR ---
DM Consult: A1C 12.3. Pt seen by RD for written/verbal DM ed w/ RD contact information provided. Pt not aware of what a dietitian does, not aware of A1C meaning, carb portions, and reports does not check Glu as much as should. Pt reports takes a once daily and BID meds for DM management but cannot recall names. RD provided thorough verbal DM ed, recommended CDE course once reopens and encouraged pt to contact dietitian's office if further questions. Pt reports some trouble reading smaller fonts; RD encouraged to have help w/ reading and nutrition facts labels as needed. Pt very hard to keep on track during ed often trying to change subject. Pt stated first thing after discharge will be going to [facility]; RD encouraged proper DM/HH-friendly menu options if pt will not change mind. Addendum: 01/06/20 at [address] Amended: Links added. Addendum: 01/06/20 at [address] DM Consult: A1C 12.3. Pt seen by RD for written/verbal DM ed w/ RD contact information provided. Pt not aware of what a dietitian does, not aware of A1C meaning, carb portions, and reports does not check Glu as much as should. Pt reports takes a once daily and BID meds for DM management but cannot recall names. RD provided thorough verbal DM ed, recommended CDE course once reopens and encouraged pt to contact dietitian's office if further questions. Pt reports some trouble reading smaller fonts; RD encouraged to have help w/ reading and nutrition facts labels as needed. Pt very hard to keep on track during ed often trying to change subject. Pt stated first thing after discharge will be going to [facility]; RD encouraged proper DM/HH-friendly menu options if pt will not change mind. Pt reports hunger and is agreeable to double proteins at lunch and dinner today; dietary notified.
[2020-01-06] MEDS ORDERED: [UNRECOGNIZED DRUG - OTHER] PO (11:44)
[2020-01-06] MEDS ORDERED: FURO-149 PO (11:59)
--- NOTE | 2020-01-06 13:14 | NUR ---
Patient stable for discharge. Patient drove self home. PIV removed, cannula intact. Patient refused insulin coverage for lunch. Prescriptions picked up from pharmacy and sent home with patient. Belongings gathered and sent home with patient.
--- NOTE | 2020-01-07 14:50 | NUR ---
Case Management DC follow up: spoke to pt via telephone: reports: "feeling pretty good, a lot better, tired" status post- c/o CP, SOB: Denies acute/persistent CP, emergent general pain, SOB at rest, resp distress, NV, vertigo, syncope, TRIPLETT, general/concerning bruising, bleeding, fever, diaphoreses, confusion.went over orthostatic hypotension protocol as a precaution r/t new Rx. Verbalizes understanding of s/s that would warrant 9-11/ER visit for further evaluation. Verbalizes understanding of current and/or new Rx; taking as ordered, no ase noted r/t polypharmacy. Acknowledges need to schedule/keep follow up appts w/PCP Crescencio, agrees to call to schedule, airplane pilot helper/[place], agrees to call to schedule follow up. All questions/concerns addressed and answered at DC; Verbalizes understanding of post status after-care compliance. No further questions at this time.
== END 2020-01-06 12:40 | disposition home or self-care (01) | DRG 280 ==
LOC: ER 11:55 → ED HOLD 14:11 → CMPBEDREQ 20:07 → ORTHO 4S 20:09
PROVIDERS: ADMIT Internal Medicine; ATTEND Internal Medicine
DX: I13.0 Hypertensive heart and chronic kidney disease with heart failure and stage 1 through stage 4 chronic kidney disease, or unspecified chronic kidney disease (principal); I50.23 Acute on chronic systolic (congestive) heart failure; I21.A1 Myocardial infarction type 2; I48.20 Chronic atrial fibrillation, unspecified; E78.5 Hyperlipidemia, unspecified; I25.10 Atherosclerotic heart disease of native coronary artery without angina pectoris; J44.9 Chronic obstructive pulmonary disease, unspecified; E11.22 Type 2 diabetes mellitus with diabetic chronic kidney disease; N18.9 Chronic kidney disease, unspecified; E66.01 Morbid (severe) obesity due to excess calories; I25.2 Old myocardial infarction; Z83.49 Family history of other endocrine, nutritional and metabolic diseases; Z82.49 Family history of ischemic heart disease and other diseases of the circulatory system; Z82.41 Family history of sudden cardiac death; Z79.01 Long term (current) use of anticoagulants; Z91.19 Patient's noncompliance with other medical treatment and regimen; Z95.1 Presence of aortocoronary bypass graft; Z79.84 Long term (current) use of oral hypoglycemic drugs; Z88.1 Allergy status to other antibiotic agents; Z79.82 Long term (current) use of aspirin; Z79.899 Other long term (current) drug therapy; Z68.27 Body mass index [BMI] 27.0-27.9, adult
CPT/HCPCS: 36415; 71045; 80048; 80053; 82948; 83036; 83735; 84484; 85025; 85610; 85730; 87081; 93005; 93306; 99285; G0378; J1815; J1940

== ENCOUNTER 2021-04-30 13:36 | Emergency (ER) | payer MEDICARE, BC ==
[~2021-04-30 13:36] MED LIST changes: -ASPI-1264 PO; +ASPI-1265 PO; -ATOR40TA PO; -CHOL2000 PO; -DILT240C94 PO; +ERTU5TAB PO; +FURO80TA3 PO; -FURO80TA87 PO; +GLIM2TAB6 PO; -GLYB5TAB7 PO; -LOSA100T57 PO; -MINO10TA16 PO; +NITR0.4T48 SL
[2021-05-01] MEDS ORDERED: SULF1TAB49 PO (09:59)
[2021-05-01] MEDS ORDERED: HYDR-3968 PO (10:11)
[2021-05-01] MEDS ORDERED: HYDR-3965 PO (10:22)
== END 2021-04-30 20:35 | disposition left against medical advice (07) ==
LOC: ER 13:37
DX: Z53.21 Procedure and treatment not carried out due to patient leaving prior to being seen by health care provider (principal)

== ENCOUNTER 2021-05-01 09:34 | Emergency (ER) | payer MEDICARE, BC ==
[~2021-05-01] VITALS: Ht 180.3 cm; Wt 100.0 kg
[2021-05-01] MEDS ORDERED: LIDOcaine 1% 30ml preserv. free vial IJ ONE (09:40)
[2021-05-01] MEDS ORDERED: SULF1TAB49 PO (09:59)
[2021-05-01] MEDS ORDERED: sulfamethoxazole/trimethoprim DS (800/160mg) tablet PO ONE (10:00)
[2021-05-01] MEDS ORDERED: HYDR-3968 PO (10:11)
[2021-05-01] MEDS ORDERED: HYDR-3965 PO (10:22)
--- NOTE | 2021-05-01 10:30 | NUR ---
Pt given and understands d/c instructions. Escorted out of the ER via wheelchair.
[2021-05-01 10:33] VITALS: BP 146/75
== END 2021-05-01 10:30 | disposition home or self-care (01) ==
LOC: ER 09:35
DX: L03.317 Cellulitis of buttock (principal); R52 Pain, unspecified; I48.91 Unspecified atrial fibrillation; I25.10 Atherosclerotic heart disease of native coronary artery without angina pectoris; I11.0 Hypertensive heart disease with heart failure; I50.9 Heart failure, unspecified; E78.00 Pure hypercholesterolemia, unspecified; I25.2 Old myocardial infarction; J44.9 Chronic obstructive pulmonary disease, unspecified; M81.0 Age-related osteoporosis without current pathological fracture; E11.9 Type 2 diabetes mellitus without complications; Z87.01 Personal history of pneumonia (recurrent); Z95.5 Presence of coronary angioplasty implant and graft; Z72.89 Other problems related to lifestyle; Z88.1 Allergy status to other antibiotic agents; Z79.82 Long term (current) use of aspirin; Z79.899 Other long term (current) drug therapy
CPT/HCPCS: 99284

== ENCOUNTER 2021-07-01 14:19 | Emergency (ER) | payer MEDICARE, BC ==
[~2021-07-01] VITALS: Ht 182.9 cm; Wt 100.0 kg
[2021-07-01 14:23] VITALS: BP 187/95
[2021-07-01 15:13] LABS: BASOPHILS # (AUTO) 0.1 X10'3 (0-0.2); EOSINOPHILS # (AUTO) 0.4 X10'3 (0-0.9); EOSINOPHILS % (AUTO) 2.9 % (0-6); HEMATOCRIT 40.7 % (42.0-52.0); HEMOGLOBIN 13.6 g/dl (14.0-17.9); LYMPHOCYTES # (AUTO) 1.1 X10'3 (1.1-4.8); LYMPHOCYTES % (AUTO) 7.8 % (21-51); MEAN CORPUSCULAR HEMOGLOBIN 28.6 PG (27.0-31.0); MEAN CORPUSCULAR HGB CONC 33.4 g/dL (33.0-36.5); MEAN CORPUSCULAR VOLUME 85.7 FL (78-98); MEAN PLATELET VOLUME 7.3 FL (7.4-10.4); MONOCYTES # (AUTO) 0.9 X10'3 (0-0.9); MONOCYTES % (AUTO) 6.4 % (2-12); NEUTROPHILS # (AUTO) 11.7 X10'3 (1.8-7.7); NEUTROPHILS % (AUTO) 81.9 % (42-75); PLATELET COUNT 211 X10'3 (140-440); RED BLOOD COUNT 4.75 X10'6 (4.70-6.10); RED CELL DISTRIBUTION WIDTH 16.8 % (11.5-14.5); WHITE BLOOD COUNT 14.3 X10'3 (4.5-11.0)
[2021-07-01 15:20] LABS: ALANINE AMINOTRANSFERASE 23 U/L (12-78); ALBUMIN 3.2 G/DL (3.4-5.0); ALBUMIN/GLOBULIN RATIO 0.8 (1.1-1.5); ALKALINE PHOSPHATASE 85 IU/L (46-116); ANION GAP 5 (8-16); ASPARTATE AMINO TRANSFERASE 13 U/L (10-37); BILIRUBIN,TOTAL 0.6 MG/DL (0.1-1.0); BLOOD UREA NITROGEN 23 MG/DL (7-18); BUN/CREATININE RATIO 12.1 (5.4-32.0); CALCIUM 8.6 MG/DL (8.5-10.1); CHLORIDE 102 MMOL/L (99-107); GLUCOSE 152 MG/DL (70-104); POTASSIUM 4.4 MMOL/L (3.5-5.1); SODIUM 135 MMOL/L (135-145); TOTAL CARBON DIOXIDE 27.9 MMOL/L (24-32); TOTAL PROTEIN 7.1 G/DL (6.4-8.2); eGFR 36 ML/MIN
--- NOTE | 2021-07-01 20:23 | NUR ---
pt left due to wait time.
== END 2021-07-01 20:24 | disposition left against medical advice (07) ==
LOC: ER 14:20
DX: R10.32 Left lower quadrant pain (principal); R20.0 Anesthesia of skin; I48.91 Unspecified atrial fibrillation; I25.10 Atherosclerotic heart disease of native coronary artery without angina pectoris; I50.9 Heart failure, unspecified; E78.00 Pure hypercholesterolemia, unspecified; I25.2 Old myocardial infarction; J44.9 Chronic obstructive pulmonary disease, unspecified; E11.9 Type 2 diabetes mellitus without complications; M10.9 Gout, unspecified; F17.220 Nicotine dependence, chewing tobacco, uncomplicated; Z98.890 Other specified postprocedural states; Z87.01 Personal history of pneumonia (recurrent); Z72.89 Other problems related to lifestyle; Z88.1 Allergy status to other antibiotic agents; Z79.82 Long term (current) use of aspirin; Z79.899 Other long term (current) drug therapy
CPT/HCPCS: 36415; 80053; 85025; 93971; 99284

== ENCOUNTER 2021-09-11 06:26 | Emergency (ER) | payer MEDICARE, BC ==
[~2021-09-11] VITALS: Ht 180.3 cm; Wt 87.9 kg
[2021-09-11 07:31] LABS: BASOPHILS # (AUTO) 0.1 X10'3 (0-0.2); EOSINOPHILS # (AUTO) 0.4 X10'3 (0-0.9); EOSINOPHILS % (AUTO) 3.5 % (0-6); HEMATOCRIT 43.8 % (42.0-52.0); HEMOGLOBIN 14.7 g/dl (14.0-17.9); LYMPHOCYTES # (AUTO) 1.2 X10'3 (1.1-4.8); LYMPHOCYTES % (AUTO) 11.5 % (21-51); MEAN CORPUSCULAR HGB CONC 33.5 g/dL (33.0-36.5); MEAN CORPUSCULAR VOLUME 89.6 FL (78-98); MEAN PLATELET VOLUME 8.1 FL (7.4-10.4); MONOCYTES # (AUTO) 0.9 X10'3 (0-0.9); NEUTROPHILS # (AUTO) 7.6 X10'3 (1.8-7.7); PLATELET COUNT 173 X10'3 (140-440); RED BLOOD COUNT 4.89 X10'6 (4.70-6.10); RED CELL DISTRIBUTION WIDTH 14.5 % (11.5-14.5); WHITE BLOOD COUNT 10.2 X10'3 (4.5-11.0)
[2021-09-11 07:42] LABS: ALANINE AMINOTRANSFERASE 7 U/L (12-78); ALBUMIN 3.2 G/DL (3.4-5.0); ALBUMIN/GLOBULIN RATIO 0.8 (1.1-1.5); ALKALINE PHOSPHATASE 83 IU/L (46-116); ANION GAP 10 (8-16); ASPARTATE AMINO TRANSFERASE 14 U/L (10-37); BILIRUBIN,TOTAL 0.6 MG/DL (0.1-1.0); BLOOD UREA NITROGEN 26 MG/DL (7-18); BUN/CREATININE RATIO 19.4 (5.4-32.0); CALCIUM 8.7 MG/DL (8.5-10.1); CHLORIDE 108 MMOL/L (99-107); CREATININE 1.34 MG/DL (0.60-1.10); GLUCOSE 194 MG/DL (70-104); POTASSIUM 3.3 MMOL/L (3.5-5.1); SODIUM 144 MMOL/L (135-145); TOTAL CARBON DIOXIDE 25.8 MMOL/L (24-32); TOTAL PROTEIN 7.2 G/DL (6.4-8.2); eGFR 53 ML/MIN
[2021-09-11 07:50] LABS: MAGNESIUM 2.2 MG/DL (1.5-2.4)
[2021-09-11] MEDS ORDERED: normal saline 1000ML IV soln IVB ONE (09:30)
[2021-09-11 10:54] VITALS: BP 150/98
[2021-09-23] MEDS ORDERED: CARV-50 PO (11:53)
== END 2021-09-11 10:56 | disposition home or self-care (01) ==
LOC: ER 06:26
DX: R42 Dizziness and giddiness (principal); R07.89 Other chest pain; R06.02 Shortness of breath; I48.91 Unspecified atrial fibrillation; I25.2 Old myocardial infarction; I11.0 Hypertensive heart disease with heart failure; I50.9 Heart failure, unspecified; E78.00 Pure hypercholesterolemia, unspecified; J44.9 Chronic obstructive pulmonary disease, unspecified; E11.9 Type 2 diabetes mellitus without complications; M10.9 Gout, unspecified; Z87.01 Personal history of pneumonia (recurrent); F17.200 Nicotine dependence, unspecified, uncomplicated; Z72.89 Other problems related to lifestyle; Z88.0 Allergy status to penicillin; Z79.82 Long term (current) use of aspirin; Z79.2 Long term (current) use of antibiotics; Z79.899 Other long term (current) drug therapy
CPT/HCPCS: 36415; 71045; 80053; 83735; 83880; 84484; 85025; 93005; 99285; J7030

== ENCOUNTER 2021-10-23 07:26 | Emergency (ER) | payer MEDICARE, BC, OTHER ==
[~2021-10-23] VITALS: Ht 175.3 cm; Wt 86.8 kg
[~2021-10-23 07:26] MED LIST changes: -ACET-2119 PO; +ATOR40TA71 PO; +CARV-50 PO; -ERTU5TAB PO; +LISI10TA27 PO; -SPIR25TA5 PO; +TICA90TA PO
[2021-10-23 07:31] VITALS: BP 129/57
[2021-10-23] MEDS ORDERED: normal saline 1000ML IV soln IVB ONE (07:50)
[2021-10-23 08:08] LABS: BASOPHILS # (AUTO) 0.1 X10'3 (0-0.2); EOSINOPHILS # (AUTO) 0.3 X10'3 (0-0.9); EOSINOPHILS % (AUTO) 2.8 % (0-6); HEMATOCRIT 43.7 % (42.0-52.0); HEMOGLOBIN 14.1 g/dl (14.0-17.9); LYMPHOCYTES # (AUTO) 1.2 X10'3 (1.1-4.8); LYMPHOCYTES % (AUTO) 10.4 % (21-51); MEAN CORPUSCULAR HEMOGLOBIN 28.6 PG (27.0-31.0); MEAN CORPUSCULAR HGB CONC 32.2 g/dL (33.0-36.5); MEAN CORPUSCULAR VOLUME 88.7 FL (78-98); MEAN PLATELET VOLUME 7.8 FL (7.4-10.4); MONOCYTES # (AUTO) 1.1 X10'3 (0-0.9); MONOCYTES % (AUTO) 9.4 % (2-12); NEUTROPHILS # (AUTO) 8.7 X10'3 (1.8-7.7); NEUTROPHILS % (AUTO) 76.4 % (42-75); PLATELET COUNT 199 X10'3 (140-440); RED BLOOD COUNT 4.93 X10'6 (4.70-6.10); RED CELL DISTRIBUTION WIDTH 15.8 % (11.5-14.5); WHITE BLOOD COUNT 11.4 X10'3 (4.5-11.0)
[2021-10-23 08:30] LABS: ALANINE AMINOTRANSFERASE 27 U/L (12-78); ALBUMIN 3.5 G/DL (3.4-5.0); ALBUMIN/GLOBULIN RATIO 0.9 (1.1-1.5); ALKALINE PHOSPHATASE 108 IU/L (46-116); ANION GAP 12 (8-16); ASPARTATE AMINO TRANSFERASE 18 U/L (10-37); BILIRUBIN,TOTAL 0.6 MG/DL (0.1-1.0); BLOOD UREA NITROGEN 24 MG/DL (7-18); BUN/CREATININE RATIO 17.4 (5.4-32.0); CALCIUM 8.9 MG/DL (8.5-10.1); CHLORIDE 107 MMOL/L (99-107); CREATININE 1.38 MG/DL (0.60-1.10); GLUCOSE 282 MG/DL (70-104); LIPASE 117 U/L (73-393); POTASSIUM 3.7 MMOL/L (3.5-5.1); SODIUM 144 MMOL/L (135-145); TOTAL CARBON DIOXIDE 24.8 MMOL/L (24-32); TOTAL PROTEIN 7.3 G/DL (6.4-8.2); eGFR 51 ML/MIN
[2021-10-23 08:46] LABS: CLARITY,URINE CLEAR (Clear); GLUCOSE, URINE 250 mg/dl (Neg); KETONES,URINE NEGATIVE (Neg); LEUKOCYTE ESTERASE ,URINE NEGATIVE (Neg); NITRITES, URINE NEGATIVE (Neg); OCCULT BLOOD,URINE NEGATIVE (Neg); PROTEIN,URINE NEGATIVE (Neg); UROBILINOGEN,URINE 0.2 E.U/dL (0.2-1.0)
[2021-10-23 08:47] LABS: COLOR,URINE STRAW (Yellow); UA COLLECTION TYPE URINAL
== END 2021-10-23 10:03 | disposition home or self-care (01) ==
LOC: ER 07:26
DX: R10.30 Lower abdominal pain, unspecified (principal); N18.9 Chronic kidney disease, unspecified; I48.91 Unspecified atrial fibrillation; I25.10 Atherosclerotic heart disease of native coronary artery without angina pectoris; I50.9 Heart failure, unspecified; E78.00 Pure hypercholesterolemia, unspecified; I25.2 Old myocardial infarction; J44.9 Chronic obstructive pulmonary disease, unspecified; E11.9 Type 2 diabetes mellitus without complications; M10.9 Gout, unspecified; Z95.5 Presence of coronary angioplasty implant and graft; Z72.89 Other problems related to lifestyle; Z88.1 Allergy status to other antibiotic agents; Z79.82 Long term (current) use of aspirin; Z79.899 Other long term (current) drug therapy
CPT/HCPCS: 36415; 71045; 74176; 80053; 81003; 83690; 84484; 85025; 96360; 99285; J7030

== ENCOUNTER 2021-11-08 06:48 | Emergency (ER) | payer MEDICARE, BC, OTHER ==
[~2021-11-08] VITALS: Ht 180.3 cm; Wt 86.8 kg
[2021-11-08] MEDS: ondansetron/PF 4mg/2ml inj IV ONE (07:44)
[2021-11-08] MEDS: HYDROcodone/acetaminophen 10/325mg tab PO ONE (07:44)
[2021-11-08 07:45] LABS: BASOPHILS # (AUTO) 0.1 X10'3 (0-0.2); EOSINOPHILS # (AUTO) 0.5 X10'3 (0-0.9); MEAN CORPUSCULAR HEMOGLOBIN 28.5 PG (27.0-31.0); PLATELET COUNT 172 X10'3 (140-440)
[2021-11-08 07:47] LABS: BASOPHILS % (AUTO) 0.7 % (0-1); EOSINOPHILS % (AUTO) 3.5 % (0-6); HEMATOCRIT 42.2 % (42.0-52.0); HEMOGLOBIN 13.6 g/dl (14.0-17.9); LYMPHOCYTES # (AUTO) 0.9 X10'3 (1.1-4.8); LYMPHOCYTES % (AUTO) 6.7 % (21-51); MEAN CORPUSCULAR HGB CONC 32.1 g/dL (33.0-36.5); MEAN CORPUSCULAR VOLUME 88.9 FL (78-98); MEAN PLATELET VOLUME 8.6 FL (7.4-10.4); MONOCYTES % (AUTO) 7.7 % (2-12); NEUTROPHILS # (AUTO) 11.1 X10'3 (1.8-7.7); NEUTROPHILS % (AUTO) 81.4 % (42-75); RED BLOOD COUNT 4.75 X10'6 (4.70-6.10); RED CELL DISTRIBUTION WIDTH 16.1 % (11.5-14.5); WHITE BLOOD COUNT 13.6 X10'3 (4.5-11.0)
[2021-11-08 08:37] LABS: ALANINE AMINOTRANSFERASE 23 U/L (12-78); ALBUMIN 3.6 G/DL (3.4-5.0); ALKALINE PHOSPHATASE 90 IU/L (46-116); ANION GAP 10 (8-16); ASPARTATE AMINO TRANSFERASE 21 U/L (10-37); BILIRUBIN,TOTAL 0.8 MG/DL (0.1-1.0); BLOOD UREA NITROGEN 31 MG/DL (7-18); BUN/CREATININE RATIO 21.8 (5.4-32.0); CALCIUM 8.6 MG/DL (8.5-10.1); CHLORIDE 107 MMOL/L (99-107); CREATININE 1.42 MG/DL (0.60-1.10); GLUCOSE 116 MG/DL (70-104); LIPASE 138 U/L (73-393); POTASSIUM 3.5 MMOL/L (3.5-5.1); SODIUM 142 MMOL/L (135-145); TOTAL CARBON DIOXIDE 24.9 MMOL/L (24-32); TOTAL PROTEIN 7.3 G/DL (6.4-8.2); eGFR 50 ML/MIN
[2021-11-08 08:48] LABS: CLARITY,URINE CLEAR (Clear); COLOR,URINE YELLOW (Yellow); GLUCOSE, URINE NEGATIVE (Neg); KETONES,URINE 15 mg/dl (Neg); LEUKOCYTE ESTERASE ,URINE NEGATIVE (Neg); NITRITES, URINE NEGATIVE (Neg); OCCULT BLOOD,URINE TRACE-INTACT (Neg); PH,URINE 5.5 (4.8-8.0); PROTEIN,URINE 30 mg/dl (Neg); UROBILINOGEN,URINE 0.2 E.U/dL (0.2-1.0)
[2021-11-08 08:57] LABS: UA COLLECTION TYPE NON-SPECIFIED
[2021-11-08 09:00] LABS: BACTERIA,URINE NONE SEEN /HPF (Neg); RBC,URINE 0-2 /HPF (0-2); SQUAMOUS EPITHELIAL CELL,UR FEW /LPF (FEW); WBC,URINE NONE SEEN /HPF (0-4)
[2021-11-08 09:42] VITALS: BP 171/109
[2021-11-08] MEDS ORDERED: HYDR-3972 PO (10:08)
== END 2021-11-08 10:24 | disposition home or self-care (01) ==
LOC: ER 06:49
DX: R10.32 Left lower quadrant pain (principal); R11.0 Nausea; I48.91 Unspecified atrial fibrillation; I25.10 Atherosclerotic heart disease of native coronary artery without angina pectoris; I50.9 Heart failure, unspecified; E78.00 Pure hypercholesterolemia, unspecified; I25.2 Old myocardial infarction; J44.9 Chronic obstructive pulmonary disease, unspecified; E11.9 Type 2 diabetes mellitus without complications; M10.9 Gout, unspecified; Z87.01 Personal history of pneumonia (recurrent); Z95.1 Presence of aortocoronary bypass graft; Z72.89 Other problems related to lifestyle; Z88.1 Allergy status to other antibiotic agents; Z79.82 Long term (current) use of aspirin; Z79.899 Other long term (current) drug therapy
CPT/HCPCS: 36415; 80053; 81001; 83690; 85025; 96374; 99284; J2405

== ENCOUNTER 2022-02-01 12:00 | Outpatient (CLI) | payer MEDICARE, BC ==
[2022-02-01 10:07] LABS: BASOPHILS # (AUTO) 0.1 X10'3 (0-0.2); BASOPHILS % (AUTO) 1.1 % (0-1); EOSINOPHILS # (AUTO) 0.2 X10'3 (0-0.9); EOSINOPHILS % (AUTO) 2.6 % (0-6); LYMPHOCYTES # (AUTO) 1.1 X10'3 (1.1-4.8); LYMPHOCYTES % (AUTO) 12.2 % (21-51); MEAN CORPUSCULAR HEMOGLOBIN 27.8 PG (27.0-31.0); MEAN CORPUSCULAR HGB CONC 32.1 g/dL (33.0-36.5); MEAN CORPUSCULAR VOLUME 86.5 FL (78-98); MEAN PLATELET VOLUME 8.1 FL (7.4-10.4); MONOCYTES # (AUTO) 1.1 X10'3 (0-0.9); MONOCYTES % (AUTO) 12.3 % (2-12); NEUTROPHILS # (AUTO) 6.4 X10'3 (1.8-7.7); NEUTROPHILS % (AUTO) 71.8 % (42-75); PRE OP HEMATOCRIT 40.3 % (42.0-52.0); PRE OP PLATELET COUNT 154 X10'3 (140-440); RED BLOOD COUNT 4.66 X10'6 (4.70-6.10); RED CELL DISTRIBUTION WIDTH 16.4 % (11.5-14.5)
[2022-02-01 10:22] LABS: ALBUMIN 3.3 G/DL (3.4-5.0); ALBUMIN/GLOBULIN RATIO 0.9 (1.1-1.5); ALKALINE PHOSPHATASE 99 IU/L (46-116); BLOOD UREA NITROGEN 35 MG/DL (7-18); BUN/CREATININE RATIO 19.6 (5.4-32.0); CALCIUM 8.6 MG/DL (8.5-10.1); CHLORIDE 106 MMOL/L (99-107); CREATININE 1.79 MG/DL (0.60-1.10); PRE OP ALT 25 U/L (30-65); PRE OP AST 20 U/L (10-37); PRE OP BILIRUB, TOTAL 0.9 MG/DL (0.0-1.0); PRE OP GLUCOSE 145 MG/DL (70-104); PRE OP SODIUM 142 MMOL/L (135-145); TOTAL PROTEIN 6.9 G/DL (6.4-8.2); eGFR 38 ML/MIN
[2022-02-01 10:30] LABS: PRE OP ANION GAP 6 (8-16); TOTAL CARBON DIOXIDE 29.6 MMOL/L (24-32)
[~2022-02-01 12:00] MED LIST changes: +ALLO100T PO; +ATOR40TA72 PO; +COLE3.755 PO; +LISI20TA28 PO
== END 2022-02-01 23:59 | disposition home or self-care (01) ==
LOC: PRE-OP 12:00 → EDSTATUS 02-08 12:00
PROVIDERS: ATTEND Surgery
DX: Z01.818 Encounter for other preprocedural examination (principal); K40.20 Bilateral inguinal hernia, without obstruction or gangrene, not specified as recurrent; K42.9 Umbilical hernia without obstruction or gangrene; I25.10 Atherosclerotic heart disease of native coronary artery without angina pectoris; I48.91 Unspecified atrial fibrillation; I48.92 Unspecified atrial flutter; I10 Essential (primary) hypertension; Z88.1 Allergy status to other antibiotic agents; Z85.038 Personal history of other malignant neoplasm of large intestine; Z87.891 Personal history of nicotine dependence; Z86.73 Personal history of transient ischemic attack (TIA), and cerebral infarction without residual deficits; Z98.890 Other specified postprocedural states
CPT/HCPCS: 36415; 80053; 85025

== ENCOUNTER 2022-03-12 07:43 | Day surgery (SDC) | payer MEDICARE, BC ==
[2022-03-12] VITALS (9 sets, daily range): BP systolic 106–181; BP diastolic 43–119
[~2022-03-12] VITALS: Ht 180.3 cm; Wt 93.6 kg
[~2022-03-12 07:43] MED LIST changes: -ASPI-1265 PO; -ATOR40TA71 PO; -INDO-12 PO; -LISI10TA27 PO; -TICA90TA PO
[2022-03-12] MEDS ORDERED: normal saline 1,000 ML IV SCH (08:40)
[2022-03-12] MEDS ORDERED: diphenhydrAMINE 25mg capsule PO PRN (08:40)
[2022-03-12] MEDS ORDERED: sodium bicarbonate (8.4%) inj. 150 ML in dextrose 5%-water 1,000 ML IV ONE (08:40)
[2022-03-12 08:44] LABS: BASOPHILS # (AUTO) 0.1 X10'3 (0-0.2); BASOPHILS % (AUTO) 0.7 % (0-1); EOSINOPHILS # (AUTO) 0.2 X10'3 (0-0.9); EOSINOPHILS % (AUTO) 1.7 % (0-6); HEMATOCRIT 36.6 % (42.0-52.0); HEMOGLOBIN 11.6 g/dl (14.0-17.9); LYMPHOCYTES # (AUTO) 1.1 X10'3 (1.1-4.8); LYMPHOCYTES % (AUTO) 7.7 % (21-51); MEAN CORPUSCULAR HEMOGLOBIN 26.2 PG (27.0-31.0); MEAN CORPUSCULAR HGB CONC 31.7 g/dL (33.0-36.5); MEAN CORPUSCULAR VOLUME 82.7 FL (78-98); MEAN PLATELET VOLUME 7.8 FL (7.4-10.4); MONOCYTES # (AUTO) 1.7 X10'3 (0-0.9); MONOCYTES % (AUTO) 12.6 % (2-12); NEUTROPHILS # (AUTO) 10.6 X10'3 (1.8-7.7); NEUTROPHILS % (AUTO) 77.3 % (42-75); PLATELET COUNT 142 X10'3 (140-440); RED BLOOD COUNT 4.43 X10'6 (4.70-6.10); RED CELL DISTRIBUTION WIDTH 17.1 % (11.5-14.5); WHITE BLOOD COUNT 13.7 X10'3 (4.5-11.0)
[2022-03-12 08:53] LABS: ALBUMIN 3.2 G/DL (3.4-5.0); ANION GAP 9 (8-16); BLOOD UREA NITROGEN 23 MG/DL (7-18); BUN/CREATININE RATIO 17.7 (5.4-32.0); CALCIUM 8.6 MG/DL (8.5-10.1); CHLORIDE 105 MMOL/L (99-107); GLUCOSE 191 MG/DL (70-104); MAGNESIUM 2.2 MG/DL (1.5-2.4); SODIUM 138 MMOL/L (135-145); eGFR 55 ML/MIN
[2022-03-12] MEDS ORDERED: midazolam 1 mg/ML 2ml injection ONE ×2 (09:53→10:45)
[2022-03-12] MEDS ORDERED: verapamil 2.5 mg/ml inj IV ONE (09:53)
[2022-03-12] MEDS ORDERED: nitroGLYCERIN-Tridil 50MG/D5W 0 ML IV ONE (09:53)
[2022-03-12] MEDS ORDERED: fentaNYL/PF 50MCG/1 ML 2ML syringe ONE (09:53)
[2022-03-12] MEDS ORDERED: iohexol 350MG/ML 100ml bottle IV ONE (09:54)
[2022-03-12] MEDS ORDERED: LIDOcaine 1% (10mg/ml) 2ml vial ONE (09:54)
[2022-03-12] MEDS ORDERED: heparin 1,000unit/ml 10ml vial 10 ML ONE (09:54)
[2022-03-12] MEDS ORDERED: proCHLORperazine 10 MG/2 ml inj ONE (10:17)
[2022-03-12] MEDS ORDERED: LIDOcaine 1% 30ml preserv. free vial ONE (10:19)
[2022-03-12] MEDS ORDERED: protamine sulfate 10mg/ml inj. ONE (11:40)
[2022-03-12] MEDS ORDERED: carVEDilol 12.5mg tablet PO SCH (14:00)
[2022-03-12] MEDS ORDERED: hyDRALAzine 10mg tablet PO SCH (14:00)
[2022-03-12] MEDS ORDERED: HYDROcodone/acetaminophen 5mg/325mg tablet PO PRN ×2 (14:10→16:35)
[2022-03-12] MEDS ORDERED: HYDROcodone/acetaminophen 10/325mg tab PO PRN ×2 (14:10→16:35)
[2022-03-12] MEDS ORDERED: ondansetron/PF 4mg/2ml inj IV PRN ×2 (14:10→16:35)
[2022-03-12] MEDS ORDERED: hydrALAZINE 25 MG tablet PO SCH (14:20)
[2022-03-12] MEDS ORDERED: sodium bicarbonate (8.4%) inj. 150 MEQ in dextrose 5%-water 1,000 ML IV SCH (16:35)
[2022-03-12] MEDS ORDERED: proCHLORperazine 10 MG/2 ml inj IV PRN (16:35)
== END 2022-03-12 16:00 | disposition home or self-care (01) ==
LOC: SSTAY O 07:43
PROVIDERS: ATTEND Internal Medicine Cardiovascular Disease
DX: I27.20 Pulmonary hypertension, unspecified (principal); I25.10 Atherosclerotic heart disease of native coronary artery without angina pectoris; I10 Essential (primary) hypertension; E11.9 Type 2 diabetes mellitus without complications; Z79.899 Other long term (current) drug therapy; Z98.890 Other specified postprocedural states
CPT/HCPCS: 36415; 80048; 82948; 83735; 85025; 85610; 92920; 93005; 93460; 99152; 99153; C1725; C1751; C1760; C1769; C1894; J0780; J1644; J2250; J2720; J3010; J3490; J7030; Q9967; A4620; A6258; A6449

== ENCOUNTER 2022-04-17 20:52 | Emergency (ER) | payer MEDICARE, BC ==
[~2022-04-17] VITALS: Ht 180.3 cm; Wt 87.3 kg
[2022-04-17 21:42] LABS: BASOPHILS # (AUTO) 0.1 X10'3 (0-0.2); BASOPHILS % (AUTO) 0.7 % (0-1); EOSINOPHILS # (AUTO) 0.4 X10'3 (0-0.9); EOSINOPHILS % (AUTO) 4.2 % (0-6); LYMPHOCYTES # (AUTO) 1.3 X10'3 (1.1-4.8); LYMPHOCYTES % (AUTO) 13.4 % (21-51); MEAN CORPUSCULAR HEMOGLOBIN 27.9 PG (27.0-31.0); MEAN CORPUSCULAR HGB CONC 32.5 g/dL (33.0-36.5); MEAN CORPUSCULAR VOLUME 85.8 FL (78-98); MEAN PLATELET VOLUME 8.7 FL (7.4-10.4); MONOCYTES # (AUTO) 1.1 X10'3 (0-0.9); MONOCYTES % (AUTO) 11.8 % (2-12); NEUTROPHILS # (AUTO) 6.6 X10'3 (1.8-7.7); NEUTROPHILS % (AUTO) 69.9 % (42-75); PLATELET COUNT 110 X10'3 (140-440); RED BLOOD COUNT 4.32 X10'6 (4.70-6.10); RED CELL DISTRIBUTION WIDTH 22.3 % (11.5-14.5); WHITE BLOOD COUNT 9.5 X10'3 (4.5-11.0)
[2022-04-17 21:53] LABS: APTT 32 SECONDS (22-32)
[2022-04-17 21:56] LABS: PLATELET ESTIMATE DECREASED
[2022-04-17 21:57] LABS: ANISOCYTOSIS 3+; ELLIPTOCYTES 1+; POLYCHROMASIA 1+
[2022-04-17 21:59] LABS: ALANINE AMINOTRANSFERASE 25 U/L (12-78); ALBUMIN 3.6 G/DL (3.4-5.0); ALBUMIN/GLOBULIN RATIO 0.9 (1.1-1.5); ALKALINE PHOSPHATASE 118 IU/L (46-116); ANION GAP 10 (8-16); ASPARTATE AMINO TRANSFERASE 21 U/L (10-37); BILIRUBIN,TOTAL 1.1 MG/DL (0.1-1.0); BLOOD UREA NITROGEN 33 MG/DL (7-18); BUN/CREATININE RATIO 16.8 (5.4-32.0); CALCIUM 8.7 MG/DL (8.5-10.1); CHLORIDE 105 MMOL/L (99-107); CREATININE 1.96 MG/DL (0.60-1.10); GLUCOSE 271 MG/DL (70-104); POTASSIUM 4.5 MMOL/L (3.5-5.1); SODIUM 139 MMOL/L (135-145); TOTAL PROTEIN 7.6 G/DL (6.4-8.2); eGFR 34 ML/MIN
[2022-04-17 23:07] VITALS: BP 160/91
== END 2022-04-17 23:08 | disposition home or self-care (01) ==
LOC: ER 20:53
DX: R58 Hemorrhage, not elsewhere classified (principal); I50.9 Heart failure, unspecified; R06.02 Shortness of breath; I48.91 Unspecified atrial fibrillation; I25.10 Atherosclerotic heart disease of native coronary artery without angina pectoris; E78.00 Pure hypercholesterolemia, unspecified; I25.2 Old myocardial infarction; J44.9 Chronic obstructive pulmonary disease, unspecified; Z87.01 Personal history of pneumonia (recurrent); E11.9 Type 2 diabetes mellitus without complications; M10.9 Gout, unspecified; F17.200 Nicotine dependence, unspecified, uncomplicated; Z98.890 Other specified postprocedural states; Z72.89 Other problems related to lifestyle; Z88.1 Allergy status to other antibiotic agents; Z79.899 Other long term (current) drug therapy
CPT/HCPCS: 36415; 71045; 80053; 83880; 84484; 85008; 85025; 85610; 85730; 93005; 99285

== ENCOUNTER 2022-07-02 15:08 | Emergency (ER) | payer MEDICARE, BC ==
[~2022-07-02] VITALS: Ht 175.3 cm; Wt 90.0 kg
[2022-07-02 16:31] VITALS: BP 139/85
[2022-07-02 17:18] LABS: ALANINE AMINOTRANSFERASE 21 U/L (12-78); ALBUMIN 3.5 G/DL (3.4-5.0); ALBUMIN/GLOBULIN RATIO 0.9 (1.1-1.5); ALKALINE PHOSPHATASE 90 IU/L (46-116); ANION GAP 10 (8-16); ASPARTATE AMINO TRANSFERASE 21 U/L (10-37); BILIRUBIN,TOTAL 0.7 MG/DL (0.1-1.0); BLOOD UREA NITROGEN 31 MG/DL (7-18); BUN/CREATININE RATIO 13.3 (5.4-32.0); CHLORIDE 102 MMOL/L (99-107); CREATININE 2.33 MG/DL (0.60-1.10); GLUCOSE 199 MG/DL (70-104); POTASSIUM 3.9 MMOL/L (3.5-5.1); SODIUM 139 MMOL/L (135-145); TOTAL PROTEIN 7.3 G/DL (6.4-8.2); eGFR 28 ML/MIN
[2022-07-02 17:22] LABS: BASOPHILS # (AUTO) 0.1 X10'3 (0-0.2); BASOPHILS % (AUTO) 1.1 % (0-1); EOSINOPHILS # (AUTO) 0.4 X10'3 (0-0.9); EOSINOPHILS % (AUTO) 3.4 % (0-6); HEMATOCRIT 41.8 % (42.0-52.0); HEMOGLOBIN 13.6 g/dl (14.0-17.9); LYMPHOCYTES # (AUTO) 1.4 X10'3 (1.1-4.8); LYMPHOCYTES % (AUTO) 12.7 % (21-51); MEAN CORPUSCULAR HEMOGLOBIN 27.5 PG (27.0-31.0); MEAN CORPUSCULAR HGB CONC 32.4 g/dL (33.0-36.5); MEAN CORPUSCULAR VOLUME 84.7 FL (78-98); MEAN PLATELET VOLUME 8.1 FL (7.4-10.4); MONOCYTES # (AUTO) 1.1 X10'3 (0-0.9); NEUTROPHILS # (AUTO) 7.9 X10'3 (1.8-7.7); NEUTROPHILS % (AUTO) 72.8 % (42-75); PLATELET COUNT 152 X10'3 (140-440); RED BLOOD COUNT 4.94 X10'6 (4.70-6.10); RED CELL DISTRIBUTION WIDTH 19.7 % (11.5-14.5); WHITE BLOOD COUNT 10.9 X10'3 (4.5-11.0)
[2022-07-02 17:48] LABS: ANISOCYTOSIS 2+; ELLIPTOCYTES 1+; PLATELET ESTIMATE NORMAL; SCHISTOCYTES FEW
== END 2022-07-02 17:27 | disposition home or self-care (01) ==
LOC: ER 15:08
DX: S40.022A Contusion of left upper arm, initial encounter (principal); D68.59 Other primary thrombophilia; X58.XXXA Exposure to other specified factors, initial encounter; Y93.89 Activity, other specified; Y92.89 Other specified places as the place of occurrence of the external cause; Y99.8 Other external cause status
CPT/HCPCS: 36415; 80053; 85008; 85025; 99283

== ENCOUNTER 2023-10-09 10:39 | Emergency (ER) | payer BC ==
[~2023-10-09] VITALS: Ht 180.3 cm; Wt 79.5 kg
[~2023-10-09 10:39] MED LIST changes: -ALLO100T PO; +ALLO100T25 PO; +AMI200T PO; -AMIO200T61 PO; -APIX5TAB3 PO; -CARV-50 PO; +CARV25TA3 PO; +CHOL20003 PO; -COLE3.755 PO; +DICL100G59 TOP; +EMPA25TA PO; -FURO80TA3 PO; -GLIM2TAB6 PO; -HYDR-4069 PO; -LINA5TAB4 PO; -NITR0.4T48 SL; +SEMA0.258 SQ
[2023-10-09 10:57] VITALS: TEMP 98
[2023-10-09 11:05] LABS: BASOPHILS # (AUTO) 0.1 X10'3 (0-0.2); BASOPHILS % (AUTO) 0.8 % (0-1); EOSINOPHILS # (AUTO) 0.3 X10'3 (0-0.9); EOSINOPHILS % (AUTO) 2.5 % (0-6); HEMATOCRIT 58.2 % (42.0-52.0); LYMPHOCYTES # (AUTO) 1.8 X10'3 (1.1-4.8); LYMPHOCYTES % (AUTO) 16.6 % (21-51); MEAN CORPUSCULAR HEMOGLOBIN 31.3 PG (27.0-31.0); MEAN CORPUSCULAR HGB CONC 32.8 g/dL (33.0-36.5); MEAN CORPUSCULAR VOLUME 95.6 FL (78-98); MEAN PLATELET VOLUME 8.3 FL (7.4-10.4); MONOCYTES # (AUTO) 1.4 X10'3 (0-0.9); MONOCYTES % (AUTO) 12.7 % (2-12); NEUTROPHILS # (AUTO) 7.5 X10'3 (1.8-7.7); NEUTROPHILS % (AUTO) 67.4 % (42-75); PLATELET COUNT 147 X10'3 (140-440); RED BLOOD COUNT 6.08 X10'6 (4.70-6.10); RED CELL DISTRIBUTION WIDTH 15.3 % (11.5-14.5); WHITE BLOOD COUNT 11.1 X10'3 (4.5-11.0)
[2023-10-09 11:15] LABS: HEMOGLOBIN 19.1 g/dl (14.0-17.9)
[2023-10-09 12:03] LABS: ALANINE AMINOTRANSFERASE 28 U/L (12-78); ALBUMIN 3.8 G/DL (3.4-5.0); ALBUMIN/GLOBULIN RATIO 0.8 (1.1-1.5); ALKALINE PHOSPHATASE 102 IU/L (46-116); ANION GAP 12 (8-16); ASPARTATE AMINO TRANSFERASE 18 U/L (10-37); BILIRUBIN,TOTAL 0.9 MG/DL (0.1-1.0); BLOOD UREA NITROGEN 37 MG/DL (7-18); BUN/CREATININE RATIO 20.9 (10.0-20.0); CALCIUM 9.3 MG/DL (8.5-10.1); CHLORIDE 99 MMOL/L (99-107); CREATININE 1.77 MG/DL (0.60-1.10); GLUCOSE 236 MG/DL (70-104); POTASSIUM 3.8 MMOL/L (3.5-5.1); SODIUM 141 MMOL/L (135-145); TOTAL CARBON DIOXIDE 29.9 MMOL/L (24-32); TOTAL PROTEIN 8.3 G/DL (6.4-8.2); eCRCL 41 ML/MIN; eGFR 38 ML/MIN
[2023-10-09 12:23] LABS: PRO BRAIN NATRIURETIC PEPTIDE 2711 PG/ML (0-125)
[2023-10-09] MEDS: nitroGLYCERIN 1gm ointment UD TP ONE (17:12)
[2023-10-09] MEDS: labetalol 20mg/4ml (5mg/ml) syringe IV ONE (17:12)
[2023-10-09] MEDS: aspirin 325mg tablet PO ONE (17:13)
[2023-10-09 19:23] VITALS: BP 152/98; PULSE 97; RESP 18; O2SAT 97
== END 2023-10-09 19:25 | disposition home or self-care (01) ==
LOC: ER 10:40
DX: I16.0 Hypertensive urgency (principal); I50.9 Heart failure, unspecified; E78.00 Pure hypercholesterolemia, unspecified; J44.9 Chronic obstructive pulmonary disease, unspecified; E11.9 Type 2 diabetes mellitus without complications; Z88.1 Allergy status to other antibiotic agents; Z79.899 Other long term (current) drug therapy; Z79.1 Long term (current) use of non-steroidal anti-inflammatories (NSAID)
CPT/HCPCS: 36415; 71045; 80053; 83880; 84484; 85025; 93005; 96374; 99285; J3490

== ENCOUNTER 2024-12-07 08:54 | Inpatient (IN) | payer BC ==
[~2024-12-07] VITALS: Ht 180.3 cm; Wt 84.7 kg
[~2024-12-07 08:54] MED LIST changes: +ALBU18HF2 INH; +ALLO100T PO; -ALLO100T25 PO; -AMI200T PO; +AMOX-580 PO; +APIX5TAB3 PO; +ATOR40TA PO; -ATOR40TA72 PO; +BUDE10.2 INH; -CARV25TA3 PO; -DICL100G59 TOP; +EMPA10TA PO; -EMPA25TA PO; +HYDR-3965 PO; -LISI20TA28 PO; +METO50TA7 PO; -SEMA0.258 SQ; +SEMA2PEN SQ; +TORS20TA3 PO
[2024-12-07 09:25] LABS: BASOPHILS # (AUTO) 0.1 X10'3 (0-0.2); BASOPHILS % (AUTO) 0.9 % (0-1); EOSINOPHILS # (AUTO) 0.1 X10'3 (0-0.9); EOSINOPHILS % (AUTO) 1.1 % (0-6); HEMOGLOBIN 10.8 g/dl (14.0-17.9); LYMPHOCYTES # (AUTO) 1.1 X10'3 (1.1-4.8); LYMPHOCYTES % (AUTO) 8.6 % (21-51); MEAN PLATELET VOLUME 8.2 FL (7.4-10.4); MONOCYTES # (AUTO) 1.3 X10'3 (0-0.9); MONOCYTES % (AUTO) 9.8 % (2-12); NEUTROPHILS # (AUTO) 10.2 X10'3 (1.8-7.7); NEUTROPHILS % (AUTO) 79.6 % (42-75); PLATELET COUNT 158 X10'3 (140-440); WHITE BLOOD COUNT 12.8 X10'3 (4.5-11.0)
[2024-12-07 09:28] LABS: ALANINE AMINOTRANSFERASE 51 U/L (12-78); ALBUMIN 3.1 G/DL (3.4-5.0); ALBUMIN/GLOBULIN RATIO 0.8 (1.1-1.5); ALKALINE PHOSPHATASE 119 IU/L (46-116); ANION GAP 11 (8-16); ASPARTATE AMINO TRANSFERASE 35 U/L (10-37); BILIRUBIN,TOTAL 1.9 MG/DL (0.1-1.0); BLOOD UREA NITROGEN 55 MG/DL (7-18); BUN/CREATININE RATIO 25.6 (10.0-20.0); CALCIUM 8.8 MG/DL (8.5-10.1); CHLORIDE 101 MMOL/L (99-107); CREATININE 2.15 MG/DL (0.60-1.10); GLUCOSE 307 MG/DL (70-104); POTASSIUM 4.3 MMOL/L (3.5-5.1); SODIUM 137 MMOL/L (135-145); TOTAL CARBON DIOXIDE 24.9 MMOL/L (24-32); TOTAL PROTEIN 7.2 G/DL (6.4-8.2); eCRCL 25 ML/MIN; eGFR 30 ML/MIN
[2024-12-07 09:35] LABS: PRO BRAIN NATRIURETIC PEPTIDE 4206 PG/ML (0-125)
[2024-12-07 09:59] LABS: HEMATOCRIT 34.8 % (42.0-52.0); MEAN CORPUSCULAR HEMOGLOBIN 23.4 PG (27.0-31.0); MEAN CORPUSCULAR VOLUME 75.5 FL (78-98); RED CELL DISTRIBUTION WIDTH 20.6 % (11.5-14.5)
[2024-12-07 10:22] LABS: ANISOCYTOSIS 3+; MICROCYTOSIS 1+; PLATELET ESTIMATE NORMAL
[2024-12-07 10:23] LABS: BURR CELLS FEW; ELLIPTOCYTES 1+; HYPOCHROMASIA 1+
[2024-12-07] MEDS: furosemide 10 MG/1 ML 10ml inj IV ONE (10:53)
[2024-12-07] MEDS: LidoCAINE 2% Topical Jelly 11mL syringe (UROJET) TOP ONE (11:34)
[2024-12-07] MEDS ORDERED: furosemide 20 MG/2 ML vial IV ONE (12:20)
[2024-12-07] MEDS ORDERED: morphine 2 MG/ML inj. syringe IV PRN ×2 (13:10)
[2024-12-07] MEDS ORDERED: potassium Cl 20 mEq SR tablet PO PRN ×2 (13:10)
[2024-12-07] MEDS ORDERED: acetaminophen 325mg tablet PO PRN (13:10)
[2024-12-07] MEDS ORDERED: magnesium Cl slow-release 64mg tablet PO PRN (13:10)
[2024-12-07] MEDS ORDERED: magnesium sulf-water 2g/50mL 50 ML IV PRN (13:10)
[2024-12-07] MEDS ORDERED: ondansetron/PF 4mg/2ml inj IV PRN (13:10)
[2024-12-07] MEDS ORDERED: mag hydrox/Alum hydrox/simeth 30ml oral suspension PO PRN (13:10)
[2024-12-07] MEDS ORDERED: potassium Cl 40MEQ/1/2NS 520ml 520 ML IV PRN (13:10)
[2024-12-07] MEDS ORDERED: magnesium sulf-water 4G/100mL 100 ML IV PRN (13:10)
[2024-12-07] MEDS ORDERED: magnesium hydroxide 30ml (MOM) UD suspension PO PRN (13:10)
[2024-12-07 14:13] LABS: FERRITIN 54 NG/ML (26-388)
[2024-12-07 14:14] LABS: ETHANOL < 10 MG/DL (<10)
[2024-12-07 15:19] LABS: % IRON SATURATION 7 % (11-46); IRON 23 UG/DL (53-167); TOTAL IRON BINDING CAPACITY 351 UG/DL (259-388)
[2024-12-07] MEDS: clindamycin 300mg/D5W 50mL 50 ML IV SCH (15:54)
[2024-12-07 16:36] LABS: BILIRUBIN,URINE NEGATIVE (Neg); CLARITY,URINE SLIGHTLY CLOUDY (Clear); COLOR,URINE YELLOW (Yellow); GLUCOSE, URINE >=1000 mg/dl (Neg); KETONES,URINE NEGATIVE (Neg); LEUKOCYTE ESTERASE ,URINE NEGATIVE (Neg); NITRITES, URINE NEGATIVE (Neg); OCCULT BLOOD,URINE MODERATE (Neg); PROTEIN,URINE NEGATIVE (Neg); UROBILINOGEN,URINE 0.2 E.U/dL (0.2-1.0)
[2024-12-07 16:39] LABS: UA COLLECTION TYPE VOIDED
[2024-12-07 16:42] LABS: BACTERIA,URINE 1+ /HPF (Neg); RBC,URINE TNTC /HPF (0-2)
[2024-12-07 16:43] LABS: SQUAMOUS EPITHELIAL CELL,UR FEW /LPF (FEW)
[2024-12-07 16:52] VITALS: BP 121/71; PULSE 80; RESP 16; O2SAT 97
[2024-12-07 16:56] LABS: SODIUM,URINE RANDOM 27 MEQ/L; URINE AMPHETAMINE SCREEN NEGATIVE (Neg); URINE BARBITUATE SCREEN NEGATIVE (Neg); URINE BENZODIAZEPINES SCREEN NEGATIVE (Neg); URINE CANNABINOID SCREEN NEGATIVE (Neg); URINE COCAINE SCREEN NEGATIVE (Neg); URINE METHADONE SCREEN NEGATIVE (Neg); URINE OPIATE SCREEN POSITIVE (Neg); URINE PHENCYCLIDINE SCREEN NEGATIVE (Neg)
[2024-12-07 17:12] LABS: OSMOLALITY UA 361 MOSM/K (50-1400)
[2024-12-07] MEDS: INSULIN LISPRO 100 UNIT/ML INSULN.PEN MULTI-DOSE SQ SCH (17:36)
[2024-12-07 18:00] VITALS: BP 121/75; PULSE 69; RESP 18; TEMP 97.4; O2SAT 92
[2024-12-07 18:20] LABS: THYROID STIMULATING HORMONE 2.76 ulU/ml (0.34-4.50)
[2024-12-07 20:00] VITALS: RESP 18; O2SAT 99
[2024-12-07] MEDS ORDERED: heparin, porcine 5000 units/ml vial SQ SCH (20:00)
[2024-12-07] MEDS: budesonide 0.5mg/2ml UD nebule IH SCH (20:00)
[2024-12-07] MEDS: K and/or MAG REPLACEMENT MC SCH (20:00)
[2024-12-07] MEDS: apixaban 5mg tablet PO SCH (21:36)
[2024-12-07] MEDS: docusate sod 100mg capsule PO SCH (21:36)
[2024-12-07] MEDS: insulin glargine (Lantus) pen - multi-dose SQ SCH (21:49)
[2024-12-07 22:00] VITALS: BP 114/72; PULSE 93; RESP 26; TEMP 97.3; O2SAT 99
[2024-12-08] VITALS (13 sets, daily range): BP systolic 116–137; BP diastolic 73–93; PULSE 57–89; RESP 15–20; TEMP 97–97.3; O2SAT 91–99
[2024-12-08] MEDS: HYDROcodone/acetaminophen 5mg/325mg tablet PO PRN (00:40)
[2024-12-08 07:01] LABS: BASOPHILS # (AUTO) 0.1 X10'3 (0-0.2); BASOPHILS % (AUTO) 1.1 % (0-1); EOSINOPHILS # (AUTO) 0.2 X10'3 (0-0.9); EOSINOPHILS % (AUTO) 1.3 % (0-6); HEMATOCRIT 33.5 % (42.0-52.0); HEMOGLOBIN 10.3 g/dl (14.0-17.9); LYMPHOCYTES # (AUTO) 1.3 X10'3 (1.1-4.8); LYMPHOCYTES % (AUTO) 10.9 % (21-51); MEAN CORPUSCULAR HEMOGLOBIN 23.7 PG (27.0-31.0); MEAN CORPUSCULAR HGB CONC 30.7 g/dL (33.0-36.5); MEAN CORPUSCULAR VOLUME 77.2 FL (78-98); MONOCYTES # (AUTO) 1.4 X10'3 (0-0.9); MONOCYTES % (AUTO) 11.8 % (2-12); NEUTROPHILS # (AUTO) 8.9 X10'3 (1.8-7.7); NEUTROPHILS % (AUTO) 74.9 % (42-75); PLATELET COUNT 143 X10'3 (140-440); RED BLOOD COUNT 4.33 X10'6 (4.70-6.10); RED CELL DISTRIBUTION WIDTH 20.8 % (11.5-14.5); WHITE BLOOD COUNT 11.8 X10'3 (4.5-11.0)
[2024-12-08 07:21] LABS: ALANINE AMINOTRANSFERASE 47 U/L (12-78); ALBUMIN 2.7 G/DL (3.4-5.0); ALBUMIN/GLOBULIN RATIO 0.7 (1.1-1.5); ALKALINE PHOSPHATASE 100 IU/L (46-116); ANION GAP 6 (8-16); ASPARTATE AMINO TRANSFERASE 32 U/L (10-37); BILIRUBIN,TOTAL 1.8 MG/DL (0.1-1.0); BLOOD UREA NITROGEN 59 MG/DL (7-18); BUN/CREATININE RATIO 27.6 (10.0-20.0); CALCIUM 8.5 MG/DL (8.5-10.1); CHLORIDE 104 MMOL/L (99-107); CHOL/HDL RATIO 1.8 (0.00-4.99); CHOLESTEROL 55 MG/DL (0-200); CREATININE 2.14 MG/DL (0.60-1.10); GLUCOSE 136 MG/DL (70-104); HDL CHOLESTEROL 31 MG/DL (35-60); LDL CHOLESTEROL 24 MG/DL (50-100); MAGNESIUM 2.6 MG/DL (1.5-2.4); POTASSIUM 4.2 MMOL/L (3.5-5.1); SODIUM 138 MMOL/L (135-145); TOTAL CARBON DIOXIDE 27.6 MMOL/L (24-32); TOTAL PROTEIN 6.5 G/DL (6.4-8.2); TRIGLYCERIDES 18 MG/DL (20-135); eCRCL 34 ML/MIN; eGFR 31 ML/MIN
[2024-12-08] MEDS: albuterol 2.5 MG/3 ML nebule NEB PRN (08:30)
[2024-12-08] MEDS: spironolactone 25 MG tablet PO SCH (08:30)
[2024-12-08] MEDS: CefTRIAXone 2gm/D5W 50ml BAG 50 ML IV SCH (08:43)
[2024-12-08] MEDS: furosemide 40mg/4ml inj IV SCH (08:44)
[2024-12-08] MEDS: losartan 25mg tablet PO SCH (08:46)
[2024-12-08] MEDS: atorvastatin 20mg tablet PO SCH (08:47)
[2024-12-08] MEDS: cholecalciferol (vitamin D3) 1,000 unit (25mcg) tablet PO SCH (08:47)
[2024-12-08] MEDS: EMPAGLIFLOZIN 10 MG TABLET PO SCH (08:47)
[2024-12-08] MEDS: metoprolol succinate 25mg (24-HOUR) SR. Tablet PO SCH (08:48)
[2024-12-08] MEDS: allopurinol 100mg tablet PO SCH (08:48)
[2024-12-08] MEDS: aspirin 81mg tab.chew PO SCH (08:57)
[2024-12-08 13:05] LABS: D-DIMER 0.89 MG/L FEU (0-0.50)
[2024-12-08] MEDS: ferrous sulfate 325mg tablet PO SCH (15:51)
[2024-12-09] VITALS (13 sets, daily range): BP systolic 106–146; BP diastolic 76–89; PULSE 75–93; RESP 16–20; TEMP 97.2–98.6; O2SAT 92–100
[2024-12-09] MEDS: HYDROcodone/acetaminophen 5mg/325mg tablet PO PRN (03:05)
[2024-12-09 06:48] LABS: BASOPHILS # (AUTO) 0.1 X10'3 (0-0.2); BASOPHILS % (AUTO) 0.8 % (0-1); EOSINOPHILS # (AUTO) 0.2 X10'3 (0-0.9); EOSINOPHILS % (AUTO) 1.6 % (0-6); HEMATOCRIT 34.8 % (42.0-52.0); HEMOGLOBIN 10.7 g/dl (14.0-17.9); LYMPHOCYTES # (AUTO) 1.3 X10'3 (1.1-4.8); LYMPHOCYTES % (AUTO) 10.1 % (21-51); MEAN CORPUSCULAR HEMOGLOBIN 23.7 PG (27.0-31.0); MEAN CORPUSCULAR HGB CONC 30.6 g/dL (33.0-36.5); MEAN CORPUSCULAR VOLUME 77.3 FL (78-98); MEAN PLATELET VOLUME 8.4 FL (7.4-10.4); MONOCYTES # (AUTO) 1.5 X10'3 (0-0.9); MONOCYTES % (AUTO) 11.5 % (2-12); NEUTROPHILS # (AUTO) 9.8 X10'3 (1.8-7.7); PLATELET COUNT 152 X10'3 (140-440); RED CELL DISTRIBUTION WIDTH 21.3 % (11.5-14.5); WHITE BLOOD COUNT 12.9 X10'3 (4.5-11.0)
[2024-12-09 07:11] LABS: ALANINE AMINOTRANSFERASE 49 U/L (12-78); ALBUMIN 2.8 G/DL (3.4-5.0); ALBUMIN/GLOBULIN RATIO 0.8 (1.1-1.5); ALKALINE PHOSPHATASE 110 IU/L (46-116); ANION GAP 12 (8-16); ASPARTATE AMINO TRANSFERASE 37 U/L (10-37); BILIRUBIN,TOTAL 1.5 MG/DL (0.1-1.0); BLOOD UREA NITROGEN 65 MG/DL (7-18); BUN/CREATININE RATIO 33.2 (10.0-20.0); CALCIUM 8.6 MG/DL (8.5-10.1); CHLORIDE 102 MMOL/L (99-107); CREATININE 1.96 MG/DL (0.60-1.10); GLUCOSE 121 MG/DL (70-104); MAGNESIUM 2.5 MG/DL (1.5-2.4); POTASSIUM 4.7 MMOL/L (3.5-5.1); SODIUM 138 MMOL/L (135-145); TOTAL CARBON DIOXIDE 24.4 MMOL/L (24-32); TOTAL PROTEIN 6.4 G/DL (6.4-8.2); eCRCL 37 ML/MIN; eGFR 34 ML/MIN
[2024-12-10 02:00] VITALS: BP 136/92; PULSE 86; RESP 17; TEMP 97.2; O2SAT 98
[2024-12-10 06:00] VITALS: BP 141/83; PULSE 81; RESP 22; TEMP 97.2; O2SAT 100
[2024-12-10 06:50] LABS: BASOPHILS # (AUTO) 0.1 X10'3 (0-0.2); BASOPHILS % (AUTO) 0.8 % (0-1); EOSINOPHILS # (AUTO) 0.2 X10'3 (0-0.9); EOSINOPHILS % (AUTO) 1.2 % (0-6); HEMATOCRIT 34.6 % (42.0-52.0); HEMOGLOBIN 10.6 g/dl (14.0-17.9); LYMPHOCYTES # (AUTO) 1.3 X10'3 (1.1-4.8); LYMPHOCYTES % (AUTO) 8.8 % (21-51); MEAN CORPUSCULAR HEMOGLOBIN 23.7 PG (27.0-31.0); MEAN CORPUSCULAR HGB CONC 30.6 g/dL (33.0-36.5); MEAN CORPUSCULAR VOLUME 77.3 FL (78-98); MEAN PLATELET VOLUME 8.1 FL (7.4-10.4); MONOCYTES # (AUTO) 1.7 X10'3 (0-0.9); NEUTROPHILS # (AUTO) 11.1 X10'3 (1.8-7.7); NEUTROPHILS % (AUTO) 77.2 % (42-75); PLATELET COUNT 153 X10'3 (140-440); RED BLOOD COUNT 4.47 X10'6 (4.70-6.10); RED CELL DISTRIBUTION WIDTH 21.4 % (11.5-14.5); WHITE BLOOD COUNT 14.4 X10'3 (4.5-11.0)
[2024-12-10 07:16] LABS: ALANINE AMINOTRANSFERASE 36 U/L (12-78); ALBUMIN 2.7 G/DL (3.4-5.0); ALBUMIN/GLOBULIN RATIO 0.7 (1.1-1.5); ALKALINE PHOSPHATASE 111 IU/L (46-116); ANION GAP 12 (8-16); ASPARTATE AMINO TRANSFERASE 34 U/L (10-37); BILIRUBIN,TOTAL 1.4 MG/DL (0.1-1.0); BLOOD UREA NITROGEN 58 MG/DL (7-18); BUN/CREATININE RATIO 30.4 (10.0-20.0); CALCIUM 8.7 MG/DL (8.5-10.1); CHLORIDE 101 MMOL/L (99-107); CREATININE 1.91 MG/DL (0.60-1.10); GLUCOSE 133 MG/DL (70-104); MAGNESIUM 2.4 MG/DL (1.5-2.4); POTASSIUM 4.7 MMOL/L (3.5-5.1); SODIUM 137 MMOL/L (135-145); TOTAL CARBON DIOXIDE 24.2 MMOL/L (24-32); TOTAL PROTEIN 6.6 G/DL (6.4-8.2); eCRCL 38 ML/MIN; eGFR 35 ML/MIN
[2024-12-10 08:00] VITALS: RESP 22; O2SAT 98
[2024-12-10] MEDS ORDERED: cefepime 2g/NS 100ml ADVANTAGE 100 ML IV SCH (08:00)
[2024-12-10 08:03] VITALS: PULSE 78; RESP 20; O2SAT 97
[2024-12-10 08:13] VITALS: PULSE 88; RESP 20
[2024-12-10] MEDS: CEFEPIME 2gm in D5W 50mL 50 ML IV SCH (08:59)
[2024-12-10 11:00] VITALS: BP 118/86; PULSE 86; RESP 22; TEMP 97; O2SAT 98
[2024-12-10] MEDS ORDERED: LINE600T11 PO (12:46)
[2024-12-10] MEDS ORDERED: FER325T PO (12:46)
[2024-12-10] MEDS ORDERED: CEFEPIME 2gm in D5W 50mL 50 ML IV SCH (14:59)
[2024-12-10] MEDS ORDERED: DOXY-243 PO (15:40)
[2024-12-10] MEDS ORDERED: LACT1CAP74 PO (15:41)
== END 2024-12-10 15:13 | disposition home health service (06) | DRG 280 ==
LOC: ER 08:54 → ED HOLD 11:11 → EDBEDREQ 12:00 → PCU 3S 12:14
PROVIDERS: ADMIT Family Medicine; ATTEND Family Medicine
PROC: CB121ZZ Planar Nuclear Medicine Imaging of Lungs and Bronchi using Technetium 99m (Tc-99m) (ICD-10-PCS; principal; 2024-12-08)
DX: I13.0 Hypertensive heart and chronic kidney disease with heart failure and stage 1 through stage 4 chronic kidney disease, or unspecified chronic kidney disease (principal); I50.23 Acute on chronic systolic (congestive) heart failure; I21.A1 Myocardial infarction type 2; L03.116 Cellulitis of left lower limb; N18.4 Chronic kidney disease, stage 4 (severe); N17.9 Acute kidney failure, unspecified; L03.115 Cellulitis of right lower limb; Z20.822 Contact with and (suspected) exposure to COVID-19; J44.9 Chronic obstructive pulmonary disease, unspecified; E11.22 Type 2 diabetes mellitus with diabetic chronic kidney disease; E11.65 Type 2 diabetes mellitus with hyperglycemia; I48.91 Unspecified atrial fibrillation; I25.10 Atherosclerotic heart disease of native coronary artery without angina pectoris; I36.1 Nonrheumatic tricuspid (valve) insufficiency; I27.81 Cor pulmonale (chronic); G47.30 Sleep apnea, unspecified; E11.42 Type 2 diabetes mellitus with diabetic polyneuropathy; D50.9 Iron deficiency anemia, unspecified; K70.31 Alcoholic cirrhosis of liver with ascites; R16.1 Splenomegaly, not elsewhere classified; K80.20 Calculus of gallbladder without cholecystitis without obstruction; E66.9 Obesity, unspecified; E78.00 Pure hypercholesterolemia, unspecified; Z95.1 Presence of aortocoronary bypass graft; Z79.01 Long term (current) use of anticoagulants; Z79.899 Other long term (current) drug therapy; Z68.26 Body mass index [BMI] 26.0-26.9, adult; Z86.73 Personal history of transient ischemic attack (TIA), and cerebral infarction without residual deficits
CPT/HCPCS: 36415; 71045; 74176; 78582; 80053; 80061; 80305; 80320; 81001; 82570; 82607; 82728; 82948; 83036; 83540; 83550; 83605; 83735; 83880; 83935; 84145; 84300; 84443; 84484; 85008; 85025; 85379; 87040; 87081; 87088; 87207; 87502; 87503; 87811; 93005; 93925; 93970; 94640; 94760; 96365; 96372; 96375; 97110; 97116; 97161; 99291; A4314; A4615; A6209; A6212; A6213; A6250; A6449; A9539; A9540; G0378; J0692; J0696; J1815; J1940; J3490; J7030

== ENCOUNTER 2025-05-21 07:15 | Day surgery (SDC) | payer BC ==
[2025-05-21] VITALS (18 sets, daily range): BP systolic 108–130; BP diastolic 63–87; PULSE 64–101; RESP 8–16; TEMP 96.7; O2SAT 82–99
[~2025-05-21] VITALS: Ht 180.3 cm; Wt 70.4 kg
[2025-05-21] MEDS: ceFAZolin 2gm/dext,iso 50mL 50 ML IV ONE (05:30)
[~2025-05-21 07:15] MED LIST changes: -AMOX-580 PO; +CETI10TA14 PO; +CYCL-1 PO; +DICL100G59 TOP; -EMPA10TA PO; +EMPA25TA PO; +FERR-106 PO; -METO50TA7 PO; +NITR0.4T48 SL; +SACU1TAB7 PO; +SEMA1PEN3 SUBCUT; -SEMA2PEN SQ; +TAMS-55 PO; +TORS100T15 PO; -TORS20TA3 PO
--- NOTE | 2025-05-21 08:06 | ELECTROCARDIOGRAPH REPORT ---
[facility] Test Date: 2025-05-21 Test Time: 08:03:38 Pat Name: VIKA RODRIGUEZ Department: [facility] Patient ID: [facility]-[id number] Room: Gender: M Salon/Spa Manager: : [id number] Requested By: ODELL OWEN Order Number: [id number] Reading MD: Measurements Intervals [place] Rate: 124 P: 78 SD: 165 QRS: -79 QRSD: 144 T: 90 QT: 446 QTc: 641 Interpretive Statements Atrial-ventricular dual-paced complexes No further analysis attempted due to paced rhythm Please click the below link to view image of tracing.
[2025-05-21] MEDS ORDERED: vancomycin 1,000mg inj ONE (08:30)
[2025-05-21] MEDS: ringers solution, lacted 1,000 ML IV SCH (08:38)
[2025-05-21] MEDS: vancomycin/NS 1 GM ADD-VANTAGE 250 ML IV ONE (08:38)
[2025-05-21] MEDS ORDERED: iohexol 350 MG/ML 50ML vial IV ONE ×2 (08:57→10:04)
[2025-05-21 09:17] LABS: MEAN PLATELET VOLUME 8.6 FL (7.4-10.4); RED CELL DISTRIBUTION WIDTH 30.2 % (11.5-14.5)
[2025-05-21 09:26] LABS: APTT 29 SECONDS (22-32); INR 1.1 INR
[2025-05-21 09:34] LABS: CREATININE 1.25 MG/DL (0.60-1.10); TOTAL CARBON DIOXIDE 30.6 MMOL/L (24-32); eCRCL 51 ML/MIN; eGFR 57 ML/MIN
[2025-05-21] MEDS ORDERED: LIDOcaine 1% W/epiNEPHrine 1:100,000 20ml vial ONE (09:34)
[2025-05-21] MEDS ORDERED: fentaNYL/PF 50MCG/1 ML 2ML syringe ONE (09:39)
[2025-05-21] MEDS ORDERED: midazolam 1 mg/ML 2ml injection ONE (10:13)
[2025-05-21] MEDS ORDERED: ondansetron/PF 4mg/2ml inj ONE (10:14)
[2025-05-21] MEDS ORDERED: dexamethasone sod phosphate 4mg/ml inj. ONE (10:14)
[2025-05-21] MEDS ORDERED: ePHEDrine 50MG/ML INJ. ONE (10:14)
[2025-05-21] MEDS ORDERED: 0.9 % SODIUM CHLORIDE 10 ML VIAL ONE (10:14)
[2025-05-21] MEDS ORDERED: LIDOcaine 2% (20mg/ml) 5ml vial ONE (10:14)
[2025-05-21] MEDS ORDERED: propofol inj 20 ML IV ONE (10:14)
[2025-05-21 10:32] LABS: PLATELET ESTIMATE DECREASED
[2025-05-21 10:33] LABS: ELLIPTOCYTES FEW
--- NOTE | 2025-05-21 12:51 | RADIOLOGY REPORT ---
EXAM: DI CHEST,SINGLE VIEW Indication: POST OP Technique: Single frontal view of the chest was obtained Comparison: DI CHEST,SINGLE VIEW on DOS: 05/17/25, DI CHEST,SINGLE VIEW on DOS: 05/16/25, DI CHEST,SINGLE VIEW on DOS: 05/16/25, DI CHEST,SINGLE VIEW on DOS: 05/15/25, DI CHEST,SINGLE VIEW on DOS: 05/15/25 FINDINGS: Lines and Tubes: Cardiac pacemaker projects over left chest wall. Subcutaneous gas projects over left chest wall. Lungs: No focal consolidation. Pleura: No effusion. No pneumothorax. Cardiomediastinal contours: Unremarkable. Atherosclerotic vascular calcifications of the thoracic aorta are noted. Bones: No acute osseous abnormality. IMPRESSION: No acute cardiopulmonary disease.
[2025-05-21] MEDS ORDERED: HYDROmorphone/PF 0.2 MG/ML SYRINGE IV PRN ×2 (13:10)
[2025-05-21] MEDS: morphine 4 MG/ML inj SYRINge IV PRN (13:17)
--- NOTE | 2025-05-21 18:23 | CARDIOLOGY REPORT ---
DATE OF SERVICE: 05/21/2025 DICTATING PHYSICIAN: ODELL OWEN DO CARDIAC CATHETERIZATION REPORT REFERRING PHYSICIAN: Alec Farnsworth MD. PROCEDURES PERFORMED: 1. Left upper extremity venography. 2. Coronary venography. 3. Placement of a coronary venous/LV electrode. 4. Placement of a right ventricular/ICD electrode. 5. Placement of right atrial electrode. 6. Implant of a biventricular pacemaker / ICD. 7. Defibrillation testing. 8. 90 minutes conscious sedation supervision. PRE/POST OPERATIVE DIAGNOSES: 1. Coronary artery disease 2. Prior myocardial infarction(s) 3.. 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 Left bundle branch block (LBBB)) ANESTHESIA: General with Dr. Hess DEVICES IMPLANTED: Medtronic coronary venous/LV electrode model #4798 and serial #[id number]; Medtronic RV ICD electrode model #6935 and serial #[id number]; Medtronic atrial electrode model #4076 and serial #[id number]; [employer] pulse generator, model #LIMB1L7, and serial #[id number]. DESCRIPTION OF PROCEDURE: The patient was given general anesthesia by Dr. Hess . The left pectoral region was liberally infiltrated with 1% lidocaine containing a 1:100,000 mixture of epinephrine. Using a left arm venogram and a micropuncture technique, a small micropuncture guidewire was placed in the axillary vein. A 6 cm incision was then made slightly more medially and just below the level of this guidewire. A small subcutaneous pocket was created with electrocautery. The small guidewire was pulled into the pocket and using the micropuncture size-up sheath, a 0.035 guidewire and a 10-Bolivian sheath were placed in the central venous circulation. Using a double guidewire exchange technique, a second, 9-F sheath was inserted along with reintroduction of the 10-Bolivian sheath. The 9-Bolivian sheath was used with an 8-Bolivian extended multipurpose Command Select catheter, which was easily placed in the coronary sinus. Coronary venography demonstrated a mid-lateral coronary vein into which the left ventricular electrode was placed. The electrode was secured to the endocardium of the vessel according to standard methodology. Sensing and pacing evaluation demonstrated a pacing impedance of 589 ohms and threshold for capture of 1.25 volts. Using the 10-Bolivian sheath, an RV ICD electrode was passed into the right atrium and prolapsed across the tricuspid valve, ultimately being placed in the right ventricular apex. The screw was extended. The stylet was withdrawn. Sensing and pacing evaluation demonstrated a pacing impedance of 475 ohms, an R-wave of 2.3 millivolts, and a capture threshold of 0.5 volts. A 7-Bolivian sheath was also placed in the central venous circulation. Using this sheath, a right atrial electrode was passed into the mid right atrium and placed in the right atrial appendage. The screw was extended. The stylet was withdrawn and sensing and pacing evaluation demonstrated a P wave amplitude of 1.4 millivolts and impedance of 551 ohms and a threshold for capture of 0.75 volts. All sheaths were removed while ensuring stability of the electrodes and fluoroscopic observation. A 3-0 Vicryl suture was placed around the electrodes at the exit point from the pectoral fascia. The electrodes were further secured to the pectoral fascia using 2, 0 Ethibond sutures around the suturing sleeves. Next, the generator was attached to the electrodes. A subpectoral pocket was then created with simple parting of the muscle bundles. The generator was placed in the subpectoral pocket and secured with an 0 Ethibond suture. A TYRX pouch was placed in this pocket. The pocket was then closed loosely with a 3-0 Vicryl suture. The subcutaneous layer was also closed with 3-0 Vicryl and the skin was approximated with 4-0 Monocryl. ESTIMATED BLOOD LOSS: 15 mL. The patient was placed in ventricular fibrillation using a 2 Joule T shock. He was easily converted back to an organized rhythm with a one 15 joule shock. There were no complications. Initial Jigar parameters were as follows: Mode DDD, LRL 60 bpm, upper tracking rate 130 bpm, upper activity rate 130 bpm, paced AV delay 130 milliseconds, sensed AV delay 100 milliseconds. Amplitude and pulse width on all 3 of the electrodes was set at 3.5 volts and 0.4 milliseconds respectively. Atrial sensitivity is set at 0.3 millivolts and right ventricular sensitivity also at 0.3 millivolts. For the ventricular tachyarrhythmia management algorithms, please see the Medtronic implant record. A chest x-ray later demonstrated full inflation of both lungs and proper position of the electrodes. ODELL OWEN DO TID: [id number] RECEIPT: [id number] [facility]
== END 2025-05-21 14:33 | disposition home or self-care (01) ==
LOC: PAS 07:15
PROVIDERS: ATTEND Internal Medicine Cardiovascular Disease
DX: I13.0 Hypertensive heart and chronic kidney disease with heart failure and stage 1 through stage 4 chronic kidney disease, or unspecified chronic kidney disease (principal); E11.22 Type 2 diabetes mellitus with diabetic chronic kidney disease; N18.9 Chronic kidney disease, unspecified; I50.22 Chronic systolic (congestive) heart failure; I50.20 Unspecified systolic (congestive) heart failure; I42.0 Dilated cardiomyopathy; I48.91 Unspecified atrial fibrillation; I25.10 Atherosclerotic heart disease of native coronary artery without angina pectoris; I24.89 Other forms of acute ischemic heart disease; I44.7 Left bundle-branch block, unspecified; I25.2 Old myocardial infarction; I70.0 Atherosclerosis of aorta; J44.9 Chronic obstructive pulmonary disease, unspecified; E78.5 Hyperlipidemia, unspecified; M10.9 Gout, unspecified; G47.33 Obstructive sleep apnea (adult) (pediatric); M19.90 Unspecified osteoarthritis, unspecified site; Z79.899 Other long term (current) drug therapy; Z98.890 Other specified postprocedural states
CPT/HCPCS: 33225; 33249; 36415; 71045; 80053; 82948; 83735; 85025; 85610; 85730; 93005; 99152; 99153; C1882; C1895; C1900; J1100; J2003; J2250; J2270; J2405; J2704; J3010; J3373; J3490; J7120; Q9967; Z7512; 85008; A4565; A4618; A6213; A6449; C1769; C1898